=== PATIENT | male | born 1950 | race Caucasian/White ===

== ENCOUNTER 2021-04-23 07:33 | Outpatient (REF) | payer MEDICARE, SELFPAY ==
[2021-04-23 10:38] LABS: MANUAL DIFF FLAG NO
[2021-04-23 10:47] LABS: Basophils Absolute Auto 0.1 X10*3/uL (0.0-0.2); Basophils Percent Auto 0.5 % (0-2); Eosinophils Absolute Auto 0.3 X10*3/uL (0.0-0.4); Hematocrit 48.4 % (42-52); Hemoglobin 15.6 g/dl (14.0-18.0); Imm Gran Abs Auto 0.14 X10*3/uL (0.00-0.03); Imm Gran Pct Auto 1.3 % (0.0-0.4); Lymphocytes Absolute Auto 3.4 X10*3/uL (1.2-4.9); Lymphocytes Percent Auto 30.9 % (20-40); Mean Corpuscular HGB Conc 32.2 g/dl (31.0-36.0); Mean Corpuscular Hemoglobin 29.7 pg (27.0-33.0); Mean Platelet Volume 10.3 fL (9.4-12.4); Monocytes Absolute Auto 1.1 X10*3/uL (0.1-1.2); Monocytes Percent Auto 9.9 % (2-11); Neutrophils Percent Auto 54.4 % (45-73); Platelet Count 244 X10*3/uL (160-400); Red Blood Count 5.26 X10*6/uL (4.60-5.80); Red Cell Distribution Width 12.5 % (11.0-16.0); White Blood Count 11.1 X10*3/uL (4.8-10.8)
[2021-04-23 11:08] LABS: Alanine Aminotransferase 46 U/L (0-40); Albumin Level 4.2 g/dL (3.5-5.0); Alkaline Phosphatase 69 U/L (39-117); Anion Gap 15 (12-20); Aspartate Amino Transferase 26 U/L (5-37); Bilirubin Total 0.7 mg/dL (0.0-1.0); Blood Urea Nitrogen 20 mg/dL (9-16); Calcium 9.4 mg/dL (8.4-10.2); Carbon Dioxide 31 mmol/L (22-29); Chloride 102 mmol/L (96-108); Cholesterol 185 mg/dL; Estimated Glomerular Filt Rate > 60; Glucose Random 93 mg/dL (60-115); HDL Cholesterol 65 mg/dL; LDL Cholesterol Calculated 98 mg/dl; Potassium 5.8 mmol/L (3.3-5.1); Sodium 142 mmol/L (135-145); Total Protein 7.1 g/dL (6.5-8.0); Triglycerides 113 mg/dL
[2021-04-23 11:20] LABS: PSA,Total (Free>4and<10) 3.69 ng/mL (0.00-4.00)
[2021-04-23 11:29] LABS: Folate 7.1 ng/mL (> or = 4.0); Thyroid Stimulating Hormone 3.86 uIU/mL (0.32-4.0); Vitamin B12 311 pg/mL (200-900)
== END 2021-04-23 07:34 | disposition home or self-care (01) ==
LOC: HO.10HDL 07:33
PROVIDERS: Urology; Visit Provider Internal Medicine
DX: Z12.5 Encounter for screening for malignant neoplasm of prostate (principal); R97.20 Elevated prostate specific antigen [PSA]; I10 Essential (primary) hypertension; E78.00 Pure hypercholesterolemia, unspecified
CPT/HCPCS: 36415; 80053; 80061; 82607; 82746; 84153; 84439; 84443; 85025

== ENCOUNTER → 2021-05-15 09:05 | Outpatient (BNVA) | payer MEDICARE, SELFPAY | PROVIDERS: Visit Provider Urology | CPT/HCPCS: Q3014 ==

== ENCOUNTER 2021-05-19 07:58 | Outpatient (REF) | payer MEDICARE, SELFPAY ==
[2021-05-19 11:09] LABS: Alanine Aminotransferase 24 U/L (0-40); Albumin Level 4.1 g/dL (3.5-5.0); Alkaline Phosphatase 74 U/L (39-117); Anion Gap 13 (12-20); Aspartate Amino Transferase 20 U/L (5-37); Bilirubin Direct 0.3 mg/dL (0.0-0.5); Bilirubin Total 0.7 mg/dL (0.0-1.0); Blood Urea Nitrogen 12 mg/dL (9-16); Calcium 9.1 mg/dL (8.4-10.2); Carbon Dioxide 31 mmol/L (22-29); Chloride 104 mmol/L (96-108); Estimated Glomerular Filt Rate > 60; Glucose Random 107 mg/dL (60-115); Iron 78 mcg/dL (45-160); Percent Iron Saturation 25 % (15-50); Potassium 5.3 mmol/L (3.3-5.1); Sodium 143 mmol/L (135-145); Total Iron Binding Capacity 317 mcg/dL (228-428); Total Protein 6.8 g/dL (6.5-8.0); Unsaturated Iron Binding 239 ug/dL
[2021-05-19 11:16] LABS: Ferritin 402 ng/mL (20-250)
[2021-05-19 11:17] LABS: HBc Num1 0.12 S/CO (0.00-0.79); HBsAGNum1 0.22 S/CO (0.00-0.99); Hepatitis B Core Antibody Nonreactive (Nonreactive); Hepatitis B Surface Antigen Negative (Negative); ~HepC Num1 0.07 S/CO (0.00-0.79); ~Hepatitis C Antibody Nonreactive (Nonreactive)
[2021-05-19 11:27] LABS: ~Hepatitis B Surface Antibody NONREACTIVE (Nonreactive)
[2021-05-19 11:54] LABS: Prostate Specific Antigen Scr 4.65 ng/mL (<0.05-4.0)
[2021-05-20 13:50] LABS: Anti Nuclear Antibody Screen NEGATIVE (NEGATIVE)
== END 2021-05-19 07:59 | disposition home or self-care (01) ==
LOC: HO.10HDL 07:58
PROVIDERS: Visit Provider Internal Medicine
DX: Z01.84 Encounter for antibody response examination (principal); Z12.5 Encounter for screening for malignant neoplasm of prostate; Z11.59 Encounter for screening for other viral diseases; Z20.822 Contact with and (suspected) exposure to COVID-19; E87.5 Hyperkalemia; R79.89 Other specified abnormal findings of blood chemistry; I10 Essential (primary) hypertension; R94.5 Abnormal results of liver function studies
CPT/HCPCS: 36415; 80048; 80076; 82728; 83540; 84153; 86038; 86039; 86704; 86706; 86803; 87340; U0005

== ENCOUNTER 2021-05-27 08:19 | Outpatient (REF) | payer MEDICARE, SELFPAY ==
[2021-05-27 10:49] LABS: Anion Gap 13 (12-20); Blood Urea Nitrogen 16 mg/dL (9-16); Calcium 9.3 mg/dL (8.4-10.2); Carbon Dioxide 30 mmol/L (22-29); Chloride 103 mmol/L (96-108); Estimated Glomerular Filt Rate > 60; Glucose Random 106 mg/dL (60-115); Potassium 4.7 mmol/L (3.3-5.1); Sodium 141 mmol/L (135-145)
== END 2021-05-27 08:20 | disposition home or self-care (01) ==
LOC: HO.10HDL 08:19
PROVIDERS: Visit Provider Internal Medicine
DX: E87.5 Hyperkalemia (principal)
CPT/HCPCS: 36415; 80048

== ENCOUNTER 2021-06-18 07:46 | Outpatient (REF) | payer MEDICARE, SELFPAY ==
--- NOTE | ~2021-06-18 | XR_ITS ---
EXAMINATION: BILATERAL KNEE X-RAY CLINICAL INFORMATION: Right knee pain COMPARISON: None TECHNIQUE: Standing AP view of both knees and lateral and sunrise view of the right knee FINDINGS: Right knee: Bone alignment is normal. No fracture or dislocation is seen. There is mild arthritis at the medial femoral tibial and patellofemoral joints with joint space narrowing and osteophyte formation. There is cystic or erosive change seen in the superior patella. There is adjacent soft heterogeneous appearing faint periosteal reaction or soft tissue ossification or calcification. There is an adjacent prepatellar soft tissue mass. Differential would include neoplasm, infection and possibly changes related to inflammatory arthritis. Follow-up MRI of the knee should be considered. There is a small joint effusion. There is faint soft tissue arterial calcification. Standing AP view of the left knee is unremarkable. XR/XR knee RT 2V IMPRESSION: Cystic or erosive changes in the superior patella, adjacent periosteal reaction or soft tissue ossification and associated superior-inferior prepatellar soft tissue mass. Neoplastic, infectious and inflammatory processes should be considered. Follow-up knee MRI recommended. Mild degenerative changes at the medial femoral tibial and patellofemoral joints. Findings will be communicated by the [place] work flow cellular biologist Keesha Pza.
--- NOTE | ~2021-06-18 | XR_ITS ---
EXAMINATION: BILATERAL KNEE X-RAY CLINICAL INFORMATION: Right knee pain COMPARISON: None TECHNIQUE: Standing AP view of both knees and lateral and sunrise view of the right knee FINDINGS: Right knee: Bone alignment is normal. No fracture or dislocation is seen. There is mild arthritis at the medial femoral tibial and patellofemoral joints with joint space narrowing and osteophyte formation. There is cystic or erosive change seen in the superior patella. There is adjacent soft heterogeneous appearing faint periosteal reaction or soft tissue ossification or calcification. There is an adjacent prepatellar soft tissue mass. Differential would include neoplasm, infection and possibly changes related to inflammatory arthritis. Follow-up MRI of the knee should be considered. There is a small joint effusion. There is faint soft tissue arterial calcification. Standing AP view of the left knee is unremarkable. XR/XR knee standing BI IMPRESSION: Cystic or erosive changes in the superior patella, adjacent periosteal reaction or soft tissue ossification and associated superior-inferior prepatellar soft tissue mass. Neoplastic, infectious and inflammatory processes should be considered. Follow-up knee MRI recommended. Mild degenerative changes at the medial femoral tibial and patellofemoral joints. Findings will be communicated by the [place] work flow peoplesoft analyst Keesha Paz.
== END 2021-06-18 07:47 | disposition home or self-care (01) ==
LOC: HO.HOSX 07:46
PROVIDERS: Visit Provider Physician Assistant
DX: M17.11 Unilateral primary osteoarthritis, right knee (principal); M70.41 Prepatellar bursitis, right knee; M25.562 Pain in left knee
CPT/HCPCS: 73560; 73565; 99202

== ENCOUNTER 2021-07-03 08:53 | Outpatient (REF) | payer MEDICARE, SELFPAY ==
--- NOTE | ~2021-07-03 | MR_ITS ---
EXAMINATION: MR KNEE WITHOUT CONTRAST, RIGHT CLINICAL INFORMATION: Right knee swelling with strenuous activity. Pain and swelling. Prepatellar bursitis. COMPARISON: Right knee radiographs dated 06/18/2021 TECHNIQUE: MRI of the knee without contrast was performed using routine sequences on a high-field scanner. FINDINGS: MENISCI: Medial Meniscus: Complex tearing of the medial meniscal body and posterior horn with dominant oblique inner margin components. The meniscal body and posterior horn are attenuated and irregular. There is a medially displaced meniscal flap measuring approximately 1.8 cm in AP dimension. Parameniscal cyst adjacent to the posterior root measuring up to 0.8 cm. Lateral Meniscus: Complex tearing of the anterior horn with a dominant oblique inner margin tear extending through the anterior horn and body. Radial inner margin tearing of the posterior horn and root. Severe attenuation of the posterior root. The meniscal body is laterally extruded. LIGAMENTS: Cruciate: Severe attenuation of the anterior cruciate ligament, consistent with a chronic high-grade partial tear. Intact posterior cruciate ligament. Collateral: Intact EXTENSOR MECHANISM: Within the distal quadriceps tendon and extending into the superior pole of the patella, there is a lobulated, heterogeneous T1 and T2 signal focus measuring approximately 2.7 x 3.5 x 4.7 cm (AP x ML x CC). This expands the distal quadriceps tendon and erodes into the superior pole of the patella. There are low T1/low T2 signal foci within the collection, corresponding to calcifications on the recent radiographs. No adjacent soft tissue edema. Intact patellar tendon. ARTICULAR CARTILAGE/BONE: Patellofemoral Compartment: Full-thickness areas of articular cartilage fissuring at the patellar median ridge and lateral patellar facet with diffuse articular cartilage signal heterogeneity and surface irregularity. Tiny marginal osteophytes. Medial Compartment: Mild weightbearing medial femoral condyle articular cartilage signal heterogeneity. Tiny marginal osteophytes. Lateral Compartment: Weightbearing articular cartilage signal heterogeneity with full-thickness loss at the posterior weightbearing lateral tibial plateau. Minimal subchondral cystic change. Small marginal osteophytes. JOINT FLUID AND BURSAE: Moderate joint effusion. Multiple lobulated foci of fat within the joint space, consistent with lipoma arborescens. Trace joint effusion. Synovial recess versus ganglion cyst dorsal to the proximal tibiofibular joint measuring up to 4.8 cm. MR/MR knee RT wo con IMPRESSION: 1. Lobulated, heterogeneous signal within the distal aspect of the quadriceps tendon extending into the superior pole of the patella with associated tendon expansion and osseous erosion. Central calcifications. Findings correspond to the previous knee radiographs. This could be the sequela of gout. Differential diagnosis includes an alternate chronic inflammatory process. No adjacent marrow or soft tissue edema. 2. Mild tricompartmental osteoarthritis. Moderate joint effusion and trace Slade's cyst. 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 Synovial recess versus ganglion cyst adjacent to the proximal tibiofibular joint measuring up to 4.8 cm. 3. Diffuse complex tearing of the medial meniscal body and posterior horn with a medially displaced meniscal flap. 4. Complex tearing throughout the lateral meniscus anterior horn with dominant oblique inner margin tearing of the meniscal body as well as a near-complete radial tear of the posterior horn/root junction. Lateral extrusion of the meniscal body.
== END 2021-07-03 08:54 | disposition home or self-care (01) ==
LOC: HO.MRI 08:53
PROVIDERS: Visit Provider Physician Assistant
DX: M70.41 Prepatellar bursitis, right knee (principal)
CPT/HCPCS: 73721

== ENCOUNTER 2022-04-24 07:12 | Outpatient (REF) | payer MEDICARE, SELFPAY | END 2022-04-24 07:13 | disposition home or self-care (01) | LOC: HO.LAB 07:12 | PROVIDERS: PCP Internal Medicine; Visit Provider Internal Medicine | DX: Z13.89 Encounter for screening for other disorder (principal) ==

== ENCOUNTER 2022-04-27 07:31 | Outpatient (REF) | payer MEDICARE, SELFPAY ==
[2022-04-27 10:21] LABS: MANUAL DIFF FLAG NO
[2022-04-27 10:34] LABS: Alanine Aminotransferase 17 U/L (0-40); Albumin Level 4.1 g/dL (3.5-5.0); Alkaline Phosphatase 83 U/L (39-117); Anion Gap 14 (12-20); Aspartate Amino Transferase 18 U/L (5-37); Basophils Absolute Auto 0.1 X10*3/uL (0.0-0.2); Basophils Percent Auto 1.1 % (0-2); Bilirubin Total 0.6 mg/dL (0.0-1.0); Blood Urea Nitrogen 20 mg/dL (9-16); Carbon Dioxide 30 mmol/L (22-29); Chloride 101 mmol/L (96-108); Cholesterol 183 mg/dL; Eosinophils Absolute Auto 0.5 X10*3/uL (0.0-0.4); Eosinophils Percent Auto 6.9 % (0-4); Estimated Glomerular Filt Rate > 60; Glucose Random 109 mg/dL (60-115); HDL Cholesterol 48 mg/dL; Hematocrit 46.4 % (42.0-52.0); Hemoglobin 15.5 g/dl (14.0-18.0); Imm Gran Abs Auto 0.03 X10*3/uL (0.00-0.03); Imm Gran Pct Auto 0.4 % (0.0-0.4); LDL Cholesterol Calculated 118 mg/dl; Lymphocytes Absolute Auto 1.6 X10*3/uL (1.2-4.9); Lymphocytes Percent Auto 22.6 % (20-40); Mean Corpuscular HGB Conc 33.4 g/dl (31.0-36.0); Mean Corpuscular Hemoglobin 30.2 pg (27.0-33.0); Mean Corpuscular Volume 90.3 fL (80.0-98.0); Mean Platelet Volume 10.4 fL (9.4-12.4); Monocytes Absolute Auto 0.7 X10*3/uL (0.1-1.2); Monocytes Percent Auto 10.3 % (2-11); Neutrophils Absolute Auto 4.1 x10*3/uL (2.0-8.3); Neutrophils Percent Auto 58.7 % (45-73); Platelet Count 252 X10*3/uL (160-400); Potassium 4.4 mmol/L (3.3-5.1); Red Blood Count 5.14 X10*6/uL (4.60-5.80); Red Cell Distribution Width 12.3 % (11.0-16.0); Sodium 141 mmol/L (135-145); Total Protein 7.1 g/dL (6.5-8.0); Triglycerides 88 mg/dL
[2022-04-27 10:54] LABS: Free T4 (Free Thyroxine) 1.01 ng/dL (0.71-1.85); PSA,Total (Free>4and<10) 4.42 ng/mL (0.00-4.00)
[2022-04-27 11:09] LABS: Folate 10.4 ng/mL (> or = 4.0); Vitamin B12 268 pg/mL (200-900)
[2022-04-27 11:44] LABS: Erythrocyte Sedimentation Rate 8 MM/HR (0-15)
[2022-04-28 11:07] LABS: Free Prostate Spec Ag 1.5 ng/mL; Percent Free Prostate Spec Ag 30 % (calc) (>25)
== END 2022-04-27 07:32 | disposition home or self-care (01) ==
LOC: HO.10HDL 07:31
PROVIDERS: Visit Provider Internal Medicine
DX: Z12.5 Encounter for screening for malignant neoplasm of prostate (principal); R97.20 Elevated prostate specific antigen [PSA]; E78.00 Pure hypercholesterolemia, unspecified; L40.9 Psoriasis, unspecified; I10 Essential (primary) hypertension
CPT/HCPCS: 36415; 80053; 80061; 82607; 82746; 84153; 84154; 84439; 84443; 85025; 85652

== ENCOUNTER → 2022-05-21 13:09 | Outpatient (BNVA) | payer MEDICARE, SELFPAY | PROVIDERS: PCP Internal Medicine; Visit Provider Urology | DX: R97.20 Elevated prostate specific antigen [PSA] (principal) | CPT/HCPCS: Q3014 ==

== ENCOUNTER 2022-11-19 14:39 | Outpatient (REF) | payer MEDICARE, SELFPAY ==
--- NOTE | ~2022-11-19 | XR_ITS ---
EXAMINATION: XR LUMBOSACRAL SPINE CLINICAL INFORMATION: Reason for Exam M54.32 - Sciatica, left side COMPARISON: Lumbar spine radiographs 12/16/2012 TECHNIQUE: 3 views of the lumbar spine FINDINGS: 5 nonrib-bearing lumbar-type vertebral bodies. Vertebral body heights are maintained. Alignment is maintained. Mild multilevel degenerative disc disease with loss of disc space height and facet arthropathy and disc osteophyte complexes. Atherosclerotic calcifications of the abdominal aorta. XR/XR lumbar spine 2-3V IMPRESSION: Mild multilevel degenerative disc disease.
== END 2022-11-19 14:40 | disposition home or self-care (01) ==
LOC: HO.XRAY 14:39
PROVIDERS: PCP Internal Medicine; Visit Provider Nurse Practitioner Family
DX: M54.32 Sciatica, left side (principal)
CPT/HCPCS: 72100

== ENCOUNTER 2023-01-28 13:28 | Outpatient (REF) | payer MEDICARE, SELFPAY | END 2023-01-28 13:29 | disposition home or self-care (01) | LOC: HO.SH 13:28 | PROVIDERS: Visit Provider Nurse Practitioner Family | DX: Z01.118 Encounter for examination of ears and hearing with other abnormal findings (principal); H90.6 Mixed conductive and sensorineural hearing loss, bilateral; H69.93 Unspecified Eustachian tube disorder, bilateral | CPT/HCPCS: 92557; 92567; 92588; 92700 ==

== ENCOUNTER 2023-04-27 08:26 | Outpatient (REF) | payer MEDICARE, SELFPAY ==
[2023-04-27 11:05] LABS: MANUAL DIFF FLAG NO
[2023-04-27 11:08] LABS: Basophils Absolute Auto 0.1 X10*3/uL (0.0-0.2); Basophils Percent Auto 1.1 % (0-2); Eosinophils Absolute Auto 0.3 X10*3/uL (0.0-0.4); Eosinophils Percent Auto 4.5 % (0-4); Hematocrit 46.4 % (42.0-52.0); Hemoglobin 14.8 g/dl (14.0-18.0); Imm Gran Abs Auto 0.03 X10*3/uL (0.00-0.03); Imm Gran Pct Auto 0.4 % (0.0-0.4); Lymphocytes Absolute Auto 1.5 X10*3/uL (1.2-4.9); Lymphocytes Percent Auto 21.1 % (20-40); Mean Corpuscular HGB Conc 31.9 g/dl (31.0-36.0); Mean Corpuscular Volume 93.9 fL (80.0-98.0); Mean Platelet Volume 10.6 fL (9.4-12.4); Monocytes Absolute Auto 0.8 X10*3/uL (0.1-1.2); Monocytes Percent Auto 11.2 % (2-11); Neutrophils Absolute Auto 4.5 x10*3/uL (2.0-8.3); Neutrophils Percent Auto 61.7 % (45-73); Platelet Count 226 X10*3/uL (160-400); Red Blood Count 4.94 X10*6/uL (4.60-5.80); Red Cell Distribution Width 12.5 % (11.0-16.0); White Blood Count 7.3 X10*3/uL (4.8-10.8)
[2023-04-27 11:55] LABS: Alanine Aminotransferase 19 U/L (0-40); Alkaline Phosphatase 69 U/L (39-117); Anion Gap 12 (12-20); Aspartate Amino Transferase 20 U/L (5-37); Bilirubin Total 0.6 mg/dL (0.0-1.0); Blood Urea Nitrogen 24 mg/dL (9-16); Calcium 9.9 mg/dL (8.4-10.2); Carbon Dioxide 31 mmol/L (22-29); Chloride 104 mmol/L (96-108); Cholesterol 176 mg/dL; Estimated Glomerular Filt Rate > 60; Glucose Random 124 mg/dL (60-115); HDL Cholesterol 46 mg/dL; LDL Cholesterol Calculated 111 mg/dl; Potassium 5.1 mmol/L (3.3-5.1); Sodium 142 mmol/L (135-145); Total Protein 7.1 g/dL (6.5-8.0); Triglycerides 95 mg/dL
[2023-04-27 12:12] LABS: Free T4 (Free Thyroxine) 0.87 ng/dL (0.71-1.85); Thyroid Stimulating Hormone 2.84 uIU/mL (0.32-4.0)
[2023-04-27 12:31] LABS: Folate 10.8 ng/mL (> or = 4.0); Prostate Specific Antigen Scr 4.24 ng/mL (<0.05-4.0); Vitamin B12 306 pg/mL (200-900)
[2023-04-27 12:45] LABS: PSA,Total (Free>4and<10) 4.07 ng/mL (0.00-4.00)
[2023-04-30 12:23] LABS: Free Prostate Spec Ag 1.2 ng/mL; Percent Free Prostate Spec Ag 30 % (calc) (>25)
== END 2023-04-27 08:27 | disposition home or self-care (01) ==
LOC: HO.10HDL 08:26
PROVIDERS: Urology; Visit Provider Internal Medicine
DX: R97.20 Elevated prostate specific antigen [PSA] (principal); E78.00 Pure hypercholesterolemia, unspecified; Z12.5 Encounter for screening for malignant neoplasm of prostate
CPT/HCPCS: 36415; 80053; 80061; 82607; 82746; 84153; 84154; 84439; 84443; 85025

== ENCOUNTER 2023-04-30 08:48 | Outpatient (AMB) | payer MEDICARE, SELFPAY ==
[2023-04-30 08:50] VITALS: BP 140/82; PULSE 64; O2SAT 100; BMI 34.6
--- NOTE | 2023-04-30 08:50 | A.OFFVIS_ITS ---
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: No Allergies atorvastatin Allergy (Unknown, Verified 04/30/23 08:52) Unknown Sulfa (Sulfonamide Antibiotics) Allergy (Unknown, Verified 04/30/23 08:52) stomach upset sulfacetamide Allergy (Unknown, Verified 04/30/23 08:52) Unknown Medication List - Last Reconciled 04/30/23 by Norma Reyes MD ascorbate calcium (vitamin C) 1 g PO DAILY atenolol 50 mg PO DAILY [Black Smart extract ] hydrochlorothiazide 25 mg PO DAILY naproxen 250 mg PO BID PRN pravastatin 10 mg PO DAILY Fall Risk Assessment Fall risk assessment: No Falls in past year Date Fall Risk Assessed: 04/30/23 HPI [facility] [id number] 04/20/22 Discuss/Bill ACP HPI Details 72-year-old obese male with hypertension hypercholesterolemia, generalized anxiety and depression last seen in July 2022 coming in for annual well visit today. Review of the notes in December 2022 went to [facility] for the low back pain diagnosis of lumbar degenerative disc disease with radiculopathy has had physical therapy MRI on the lower back done in November 2019 showing lumbar spine degenerative disc disease with central canal and foraminal narrowing L1-L2 left-sided subarticular disc extrusion extending superiorly into the left lateral recess of the L1 this crowds and likely compresses on the L left L1 nerve root. Patient is here for annual well visit. BP at [facility] has been good [facility] Medical History (Updated 04/30/23 @ 09:26 by Norma Reyes MD) Alcohol abuse Anxiety and depression Elevated PSA Gout Hypercholesterolemia Hypertension Left sided sciatica Lumbar degenerative disc disease Obesity (BMI 30-39.9) Osteoarthritis Psoriasis Swelling of left index finger Thoracic outlet syndrome Vitamin D deficiency Surgical History H/O myringotomy Social History (Updated 04/30/23 @ 09:36 by Norma Reyes MD) Alcohol intake: current Patient Tobacco Use Status: Former Tobacco user Years Smoked: stopped 1984 e-Cigarette/Vaping Use: Never Used Current occupational status: retired Current occupation: rt handed Cognitive needs: No Hearing needs: No Vision needs: No Questionnaire Medicare Wellness Checkup [age] What gender do you identify with?: male During the past 4 weeks, how much have you been bothered by emotional problems such as feeling anxious, depressed, irritable, sad or downhearted, and blue?: moderately During the past 4 weeks, has your physical & emotional health limited your social activities with family, friends, neighbors, or groups?: slightly During the past 4 weeks, how much bodily pain have you generally had?: very mild pain During the past 4 weeks, was someone available to help you if you needed & wanted help?: yes, as much as I wanted During the past 4 weeks, what was the hardest physical activity you could do for at least 2 minutes?: heavy Can you get to places out of walking distance without help? (For eg., can you travel alone on buses, taxis or drive your car?): Yes Can you go shopping for groceries or clothes without someone's help?: Yes Can you prepare your own meals?: Yes Can you do your housework without help?: Yes Because of any health problems, do you need the help of another person with your personal care needs such as eating, bathing, dressing or getting around the house?: No Can you handle your own money without help?: Yes During the past 4 weeks, how would you rate your health in general?: good During the past 4 weeks how have things been going for you?: good & bad parts about equal Are you having difficulties driving your car?: no Do you always fasten your seat belt when you are in a car?: yes, usually During past 4 weeks, have you been bothered by the following: never: Falling or dizzy when standing up, Trouble eating well?, Teeth or denture problems? and Problems using the telephone? and sometimes: Sexual problems? and Tiredness or fatigue? Have you fallen 2 or more times in the past year?: No Are you afraid of falling?: No Are you a smoker?: no During the past 4 weeks, how many drinks of wine, beer, or other alcoholic beverages did you have?: 10 or more per week Do you exercise for about 20 minutes 3 or more times a week?: yes, most of the time Have you been given information to help with the following?: yes: Hazards in your house that might hurt you? and yes: Keeping track of your medications? How often do you have trouble taking medicines the way you have been told to t sabrina them?: I always take medicine as prescribed How confident are you that you can control & manage most of your health problems?: very confident What is your race?: White PHQ-9 Over the last 2 weeks, how often have you been bothered by any of the following problems? 1. Little interest or pleasure in doing things: several days 2. Feeling down, depressed, or hopeless: several days 3. Trouble falling or staying asleep, or sleeping too much: several days 4. Feeling tired or having little energy: several days 5. Poor appetite or overeating: not at all 6. Feeling bad about yourself - or that you are a failure or have let yourself or your family down: not at all 7. Trouble concentrating on things, such as reading the newspaper or watching television: not at all 8. Moving or speaking so slowly that other people could have noticed. Or the opposite - being so fidgety or restless that you have been moving around a lot more than usual: not at all 9. Thoughts that you would be better off or of hurting yourself in some way: not at all Total score: 4 Source: Developed by Drs. Vj Casanova, Wagner Chavez and colleagues, with an educational tere from [employer]. ANI-7 AMB Questionnaire ANI-7 Date ANI - 7 assessed: 11/19/22 Source: Developed by Elvira Cleaning Kurt Kroenke and colleagues, with an educational tere from [employer]. Thrive Questionnaire Date Thrive assessed: 11/19/22 Review of Systems Const Denies poor appetite and Denies weakness Eyes Denies no additional complaints ENT Reports Normal hearing present, Denies dizziness, Denies nasal congestion, Denies tinnitus and Denies sore throat Card Denies chest pain, Denies syncope, Denies rapid heart rate and Denies dyspnea Resp Denies cough and Denies dyspnea GI Denies change in stool character, Reports constipation, Denies diarrhea, Denies nausea and Denies vomiting Denies dysuria and Denies urinary frequency Neuro Reports Normal hearing present, Denies confusion, Denies dizziness, Denies syncope and Denies weakness Psych Denies confusion Physical Exam Vital Signs: Last Vital Signs Pulse 64 04/30/23 08:50 BP 140/82 H 04/30/23 08:50 Pulse Ox 100 04/30/23 08:50 Oxygen Delivery Method Room Air 04/30/23 08:50 BMI result Body Mass Index 34.6 Const General: No confusion Orientation/consciousness: No confusion HEENT Head: Yes normocephalic Ears: external ears normal and TM's normal bilaterally Face and sinus: Yes normal facial exam Mouth: moist mucous membranes Throat: Yes tonsils normal Eyes Conjunctivae: conjunctivae normal Pupils: Equal, round and reactive pupils present and Pupil accommodation reflex normal Direct Ophthalmoscopy: normal light reflex Neck Neck: No lymphadenopathy Thyroid: Thyroid normal Chest Chest palpation & inspection: normal inspection of the chest Resp Effort & Inspection: normal respiratory effort and no audible wheezes Auscultation: clear to auscultation bilaterally, no crackles, no wheezes and lung sounds not diminished Cardio Rate: regular rate Rhythm: regular rhythm Peripheral pulses: radial pulses present and dorsalis pedis present GI Other: decline- will see Dr. Esteban Palpation (GI): no masses Auscultation: normal bowel sounds and normoactive bowel sounds Rectal Exam - Male: Yes deferred Male General Exam: Yes normal external exam Skin General skin exam: no rashes or lesions noted Rashes: no rashes Neuro General: No confusion Cranial nerves: Yes Equal, round and reactive pupils present and Yes Normal hearing present Cognition (Neuro): normal cognition Gait exam (Neuro): Normal gait present Motor exam (neuro): 5/5 motor strength present throughout Deep tendon reflexes (DTR's): Right brachioradialis reflex intensity grade: 2+, Left brachioradialis reflex intensity grade: 2+, Right patellar reflex intensity grade: 2+ and Left patellar reflex intensity grade: 2+ Extrem General: No edema Results AMB Hemoglobin A1c AMB Hemoglobin A1c 5.8 % Last Edit by GONZALEZ Deleon on 04/30/23 09:46 Assessment & Plan Assessment & Plan (1) Medicare annual wellness visit, subsequent: Code(s): Z00.00 - Encounter for general adult medical examination without abnormal findings (2) Lumbar degenerative disc disease: Code(s): M51.36 - Other intervertebral disc degeneration, lumbar region Plan: Patient has had an MRI done in November 2022 showing some nerve root compression lumbar. Did see [facility] but conservative management (3) Hypertension: Code(s): I10 - Essential (primary) hypertension Plan: Continue with blood pressure medication. Decrease salt intake and exercise patient is on atenolol and hydrochlorothiazide (4) Hypercholesterolemia: Code(s): E78.00 - Pure hypercholesterolemia, unspecified Plan: Avoid fried foods, chicken skin, eggs, butter margarine, pastries and meat. Be it pork or beef they have a lot of cholesterol LDL goal of less than 130 and triglyceride of less than 150 April 2023 last blood work on pravastatin 10 mg once a day (5) Obesity (BMI 30-39.9): Code(s): E66.9 - Obesity, unspecified Plan: Diet and exercise (6) Psoriasis: Code(s): L40.9 - Psoriasis, unspecified (7) Elevated PSA: Code(s): R97.20 - Elevated prostate specific antigen [PSA] Plan: Continuing to monitor (8) Generalized anxiety disorder: Code(s): F41.1 - Generalized anxiety disorder Plan: Stable (9) Elevated blood sugar: Code(s): R73.9 - Hyperglycemia, unspecified Plan: Will check for hemoglobin A1c. Decrease the amount of carbohydrate intake, pasta, bread, rice and potatoes are all sugar and that is aside from all the sweet stuff, remember that fruits are good but they are Sweet also. Orders: Orders AMB Hemoglobin A1c Today Z13.9 - Encounter for screening, unspecified Quality Reporting (2019) Fall Risk Screening ([facility] 139) Last assessed Fall Risk: 04/30/23 Fall risk assessment: No Falls in past year Depression/Bipolar (159/160/161/177) PHQ-9: Total score: 4 Coding Level of Care Code Medicare Subsequent (G0439) Diagnoses Medicare annual wellness visit, subsequent Z00.00 Lumbar degenerative disc disease M51.36 Hypertension I10 Hypercholesterolemia E78.00 Obesity (BMI 30-39.9) E66.9 Psoriasis L40.9 Elevated PSA R97.20 Generalized anxiety disorder F41.1 Elevated blood sugar R73.9
== END 2023-04-30 10:09 | disposition home or self-care (01) ==
PROVIDERS: Visit Provider Internal Medicine
DX: Z00.00 Encounter for general adult medical examination without abnormal findings (principal); E66.9 Obesity, unspecified; Z68.34 Body mass index [BMI] 34.0-34.9, adult; R73.9 Hyperglycemia, unspecified
CPT/HCPCS: 83036; G0439

== ENCOUNTER 2023-05-25 08:50 | Outpatient (AMB) | payer MEDICARE, SELFPAY ==
--- NOTE | 2023-05-25 08:55 | A.OFFVIS_ITS ---
Intake Intake Visit Reasons: 1Y PSA(set) Intake Note: Patient is present for Follow Up PSA Urology Med: None Antibiotic Allergy: Sulfa Antibiotic Blood Thinner: None Pharmacy: [facility] Allergies atorvastatin Allergy (Unknown, Verified 05/25/23 08:59) Unknown Sulfa (Sulfonamide Antibiotics) Allergy (Unknown, Verified 05/25/23 08:59) stomach upset sulfacetamide Allergy (Unknown, Verified 05/25/23 08:59) Unknown HPI HPI Comments History of Present Illness Details Franck BROWN is a very pleasant male. He is a patient of Dr Reyes. He is seen for the following urologic conditions. - elevated PSA PSA stable since last year - PSA 4.1, not on medication, high free percentage Continue yearly evaluation Maxeran not have caffeine prior to test Elevated PSA/Abnormal KRISTY:? He presents for ?further evaluation of elevated PSA ?- remains stable at followup - noctruria x2, effective emptying ? Current management is?no medication ? Laboratory investigations include?a total PSA evaluation ?12/05 5.2, 10/08 3.5, 11/09 5.1 20%, 04/08 PSA 4.0 24%, 05/10 3.8, 05/11 4.4 30%. 05/12 4.1 30% ? Indiviudalized Prostate Cancer Risk Calculator?5-10% high risk, Would like to continue with observation and understands and accepts the risks of a possible delay in diagnosis.? A TRUS biopsy? has ?been performed and is negative 2011 ? Symptoms include?04/06 , incomplete emptying, weak stream, and are stable.? Overall symptoms are?mild.? Associated conditions? erectile dysfunction ?Yes ? Therapeutic plan will be?continued surveillance [facility] Medical History Alcohol abuse Anxiety and depression Elevated PSA Gout Hypercholesterolemia Hypertension Left sided sciatica Lumbar degenerative disc disease Obesity (BMI 30-39.9) Osteoarthritis Psoriasis Swelling of left index finger Thoracic outlet syndrome Vitamin D deficiency Surgical History H/O myringotomy Social History Alcohol intake: current Patient Tobacco Use Status: Former Tobacco user Years Smoked: stopped 1984 e-Cigarette/Vaping Use: Never Used Current occupational status: retired Current occupation: rt handed Cognitive needs: No Hearing needs: No Vision needs: No Review of Systems Const Denies chills and Denies fever(s) Card Reports no additional complaints and Denies syncope Resp Denies cough GI Denies abdominal pain and Denies heartburn Reports as per HPI and Denies change in libido Neuro Denies syncope Psych Denies change in libido Endo Denies change in libido Physical Exam Const General: cooperative, healthy appearing, comfortable and no acute distress Orientation/consciousness: patient oriented x3 HEENT Face and sinus: Yes normal facial exam Mouth: moist mucous membranes Neck Neck: Yes normal visual inspection, Yes full ROM and Yes trachea midline Chest Chest palpation & inspection: normal inspection of the chest Resp Effort & Inspection: normal respiratory effort, able to speak in complete sentences and no respiratory distress GI Inspection: Yes normal to inspection Back/Spine/Pelvis Cervical Spine: normal cervical lordosis Thoracic/Lumbar Spine: thoracic and lumbar spine normal to inspection Skin General skin exam: no rashes or lesions noted Neuro General: patient oriented x3, gait normal, tone normal and moves all extremities Extrem General: Yes normal to inspection and Yes capillary refill normal Assessment & Plan Assessment & Plan (1) Elevated PSA: Code(s): R97.20 - Elevated prostate specific antigen [PSA] Plan Twelve month follow-up Patient Instructions: Imaging studies, laboratory and physical exam results were discussed and reviewed in detail. No major barriers to patient understanding were identified. An opportunity to ask questions regarding the treatment plan was provided. All questions were answered. The patient expressed understanding and agreement with the above treatment plan. The patient is aware they should contact our office by phone for worsening of their current condition or the appearance of new urologic symptoms. Compliance is encouraged with any medications and followup testing that is ordered. It is a privilege to participate in the urologic care of your patient. If you have any questions or concerns regarding treatment for the above conditions, or other urologic issues, please do not hesitate to contact me. The office telephone contact is [phone]. This note is constructed using voice recognition software. While every effort has been made to ensure accuracy repair supervisor errors may have been included. Yours sincerely, Dr Bakari Esteban MD, [facility] - Urology Providers of Expert, Compassionate Care for the Genitourinary System Coding Level of Care Code Est Pt Level 4 (48552) Diagnoses Elevated PSA R97.20
== END 2023-05-25 09:48 | disposition home or self-care (01) ==
PROVIDERS: PCP Internal Medicine; Visit Provider Urology
DX: R97.20 Elevated prostate specific antigen [PSA] (principal)
CPT/HCPCS: 99213

== ENCOUNTER → 2023-05-25 08:50 | Outpatient (BNVA) | payer MEDICARE, SELFPAY | PROVIDERS: Visit Provider Urology | DX: R97.20 Elevated prostate specific antigen [PSA] (principal) | CPT/HCPCS: 99212 ==

== ENCOUNTER 2023-07-19 10:33 | Outpatient (REF) | payer MEDICARE, SELFPAY ==
--- NOTE | ~2023-07-19 | XR_ITS ---
EXAMINATION: XR WRIST, RIGHT CLINICAL INFORMATION: Swelling COMPARISON: Right hand radiograph from 01/11/2019 TECHNIQUE: PA and lateral views of the right wrist. FINDINGS: No acute visible fracture or dislocation. Moderate to severe multi joint arthritic changes greatest at the first carpal metacarpal joint and distal radial ulnar joint. Joint space alignment are otherwise maintained. Soft tissue prominence about the wrist and distal forearm. XR/XR wrist RT 2V IMPRESSION: 1. No acute visible fracture or dislocation. 2. Moderate to severe multi joint arthritic changes greatest at the first carpometacarpal joint and distal radial ulnar joint. 3. Soft tissue prominence about the wrist and distal forearm.
[2023-07-19 13:41] LABS: MANUAL DIFF FLAG NO
[2023-07-19 13:43] LABS: Basophils Absolute Auto 0.1 X10*3/uL (0.0-0.2); Basophils Percent Auto 0.7 % (0-2); Eosinophils Absolute Auto 0.2 X10*3/uL (0.0-0.4); Eosinophils Percent Auto 1.9 % (0-4); Hemoglobin 15.4 g/dl (14.0-18.0); Imm Gran Abs Auto 0.04 X10*3/uL (0.00-0.03); Imm Gran Pct Auto 0.4 % (0.0-0.4); Lymphocytes Absolute Auto 1.4 X10*3/uL (1.2-4.9); Lymphocytes Percent Auto 13.1 % (20-40); Mean Corpuscular HGB Conc 32.8 g/dl (31.0-36.0); Mean Corpuscular Hemoglobin 30.1 pg (27.0-33.0); Mean Platelet Volume 10.5 fL (9.4-12.4); Monocytes Absolute Auto 1.1 X10*3/uL (0.1-1.2); Monocytes Percent Auto 10.9 % (2-11); Neutrophils Absolute Auto 7.6 x10*3/uL (2.0-8.3); Platelet Count 246 X10*3/uL (160-400); Red Blood Count 5.11 X10*6/uL (4.60-5.80); Red Cell Distribution Width 12.5 % (11.0-16.0); White Blood Count 10.4 X10*3/uL (4.8-10.8)
[2023-07-19 14:23] LABS: Erythrocyte Sedimentation Rate 21 MM/HR (0-15)
== END 2023-07-19 10:34 | disposition home or self-care (01) ==
LOC: HO.10HDL 10:33
PROVIDERS: Visit Provider Nurse Practitioner Family
DX: M25.541 Pain in joints of right hand (principal)
CPT/HCPCS: 36415; 73100; 85025; 85652

== ENCOUNTER 2023-08-17 11:48 | Outpatient (REF) | payer MEDICARE, SELFPAY ==
[2023-08-17 13:26] LABS: C Reactive Protein 0.87 mg/dL (< or = 0.50); Uric Acid 8.4 mg/dL (3.4-7.0)
[2023-08-17 13:27] LABS: Rheumatoid Factor < 13.0 IU/mL (<15.0)
[2023-08-17 13:52] LABS: Erythrocyte Sedimentation Rate 12 MM/HR (0-15)
[2023-08-18 08:28] LABS: HBc Num1 0.12 S/CO (0.00-0.79); HBsAGNum1 0.27 S/CO (0.00-0.99); Hepatitis B Core Antibody Nonreactive (Nonreactive); Hepatitis B Surface Antigen Negative (Negative); ~HepC Num1 0.09 S/CO (0.00-0.79); ~Hepatitis C Antibody Nonreactive (Nonreactive)
[2023-08-18 10:29] LABS: Complement C3 134 mg/dL (82-185)
[2023-08-18 12:38] LABS: Cyclic Citrullinated Peptide <16 UNITS
[2023-08-19 19:23] LABS: TS Negative Control Passed; TS Panel A 0; TS Panel B 0; TS Positive Control Passed; TSpotTB Negative (Negative)
[2023-08-20 11:33] LABS: Anti Nuclear Antibody Screen NEGATIVE (NEGATIVE)
== END 2023-08-17 11:49 | disposition home or self-care (01) ==
LOC: HO.10HDL 11:48
PROVIDERS: Visit Provider Internal Medicine Rheumatology
DX: Z11.1 Encounter for screening for respiratory tuberculosis (principal); M25.50 Pain in unspecified joint; M79.641 Pain in right hand; M79.642 Pain in left hand; M19.041 Primary osteoarthritis, right hand; M19.042 Primary osteoarthritis, left hand; M1A.9XX1 Chronic gout, unspecified, with tophus (tophi); L40.9 Psoriasis, unspecified; Z11.59 Encounter for screening for other viral diseases; Z72.89 Other problems related to lifestyle
CPT/HCPCS: 36415; 84550; 85652; 86038; 86140; 86160; 86200; 86431; 86481; 86704; 86803; 87340

== ENCOUNTER 2023-09-16 13:29 | Emergency (ER) | payer MEDICARE, SELFPAY ==
[2023-09-16 13:50] VITALS: BP 132/90; PULSE 54; O2SAT 99
[2023-09-16 13:53] VITALS: BP 146/64; PULSE 59; RESP 18; TEMP 37.1; O2SAT 96; BMI 34.7
--- NOTE | 2023-09-16 14:11 | ED_ITS ---
HPI - Back Pain/Injury General Chief Complaint: Extremity Injury, Lower Stated Complaint: LOWER BACK/EXTREMITY PAIN,DIFFICULTY AMBULATING Time Seen by Provider: 09/16/23 13:40 Source: patient Mode of arrival: ambulatory Limitations: no limitations History of Present Illness HPI Narrative: 72 yo male with hx of sciatica not on thinners was playing tennis yesterday and c/o pain on R side from buttock but no loss of control of bowel or bladder no numbness no abdominal pain tried naproxen but no relief. no cramps anywhere else. States he panicked because he lives alone. He has no pain now after getting jostled on ride over. MD elicited complaint: back pain Pertinent past history: prior back pain Onset (ago): day(s) (1) Timing: now resolved Severity: moderate Similar Symptoms Previously: Yes Quality: sharp Location: lumbar spine Radiation: right upper leg Exacerbating factors: movement Relieving factors: immobilization Context: unknown Associated symptoms: denies other symptoms Related Data Home Medications Medication Instructions Recorded Confirmed ascorbate calcium (vitamin C) 500 1 g PO DAILY 04/29/22 04/30/23 mg tablet naproxen 250 mg tablet 250 mg PO BID PRN 04/29/22 04/30/23 Black Smart extract 04/30/23 04/30/23 Previous Rx's Medication Instructions Recorded pravastatin 10 mg tablet 10 mg PO DAILY #90 tabs 10/12/22 atenolol 50 mg tablet 50 mg PO DAILY #90 tabs 01/05/23 hydrochlorothiazide 25 mg tablet 25 mg PO DAILY #90 tabs 01/05/23 Allergies Allergy/AdvReac Type Severity Reaction Status Date / Time atorvastatin Allergy Unknown Unknown Verified 05/25/23 08:59 Sulfa (Sulfonamide Allergy Unknown stomach Verified 05/25/23 08:59 Antibiotics) upset sulfacetamide Allergy Unknown Unknown Verified 05/25/23 08:59 Review of Systems Review of Systems: Constitutional : No Weight loss, No Fever, No Chills, ENT/Mouth : No Hearing loss, No Ear Pain, No Nasal Congestion, No Sinus Pain, No Hoarseness, No sore throat, No Rhinorrhea, No Swallowing Difficulty Cardiovascular : No Chest Pain, No SOB Respiratory : No Cough, No Dyspnea Gastrointestinal : No Nausea, No Vomiting, No Diarrhea, No abdominal Pain, No Hematochezia, No Melena Genitourinary : No Dysuria, No Urinary Frequency, No Hematuria, No Urinary Incontinence, Musculoskeletal : positive back pain Skin : No Skin Lesions, No rash Neuro : No Weakness, No Numbness, No Paresthesias, no loss of bowel or bladder incontinence, no saddle anesthesia All other systems reviewed and are negative [facility] Past Medical History Attestation statement: The following information was validated with the patient. Medical History Lumbar degenerative disc disease Left sided sciatica Swelling of left index finger Elevated PSA Thoracic outlet syndrome Vitamin D deficiency Osteoarthritis Anxiety and depression Gout Obesity (BMI 30-39.9) Psoriasis Alcohol abuse Hypercholesterolemia Hypertension Surgical History H/O myringotomy Social History Social History Alcohol intake: current Alcohol type: beer Patient Tobacco Use Status: Former Tobacco user Years Smoked: stopped 1984 e-Cigarette/Vaping Use: Never Used Current occupational status: retired Current occupation: rt handed Cognitive needs: No Hearing needs: No Vision needs: No Physical Exam Vital Signs: Vital Signs: Last Vital Signs Temp 98.8 F 09/16/23 13:53 Pulse 59 09/16/23 13:53 Resp 18 09/16/23 13:53 BP 146/64 H 09/16/23 13:53 Pulse Ox 96 09/16/23 13:53 O2 Del Method Room Air 09/16/23 13:53 BMI result Body Mass Index 34.7 Appearance: Alert. Oriented X3. No acute distress. Eyes: Pupils equal, round and reactive to light. ENT: Pharynx normal. Neck: Normal inspection. Neck supple. CVS: Normal heart rate and rhythm. Pulses normal. Respiratory: No respiratory distress. Breath sounds normal. Abdomen: Soft and nontender. Back: mild R buttock ttp Skin: Skin warm and dry. Normal skin color. Normal skin turgor. Extremities: No lower extremity edema. distal pulses intact, no swelling, 2+ DP pulses, no calf ttp or myalgias Neuro: Oriented X 3. No motor deficit. No sensory deficit. L5 5/5 normal gait no pain Medical Decision Making Medical Decision Making MDM Narrative: 72yo male with hx of sciatica here with c/o R sided buttock pain down into R leg no b/b incontinence, no saddle anesthesia, not on thinners no other cramps and now reports the jostling of the ambulance ride has somehow fixed his pain. He is ambulating fine has no CE symptoms and is pain free at this time stable for DC, no red flags. Differential Diagnosis Differential Diagnoses: The differential diagnosis associated with the presentation includes sciatica, spasm Independent Historian Clinical information obtained from an independent historian. History obtained from or confirmed by: EMS Tests considered The following testing was considered but not selected: labs but not on diuretics and no cramps anywhere else Discharge Plan Discharge Clinical Impression: Sciatica Qualifiers: Laterality: right Qualified Code(s): M54.31 - Sciatica, right side Patient Disposition: Home, Self-Care Instructions: Sciatica (ED) Additional Instructions: can take your naproxen. return for fevers, abdominal pain, loss of control of bowel or bladder, numbness, cramps anywhere else or any other concerns. do your stretches and follow up with your doctor Prescriptions: No Action pravastatin 10 mg tablet 10 mg PO DAILY Qty: 90 3RF atenolol 50 mg tablet 50 mg PO DAILY Qty: 90 2RF hydrochlorothiazide 25 mg tablet 25 mg PO DAILY Qty: 90 2RF naproxen 250 mg tablet 250 mg PO BID PRN ascorbate calcium (vitamin C) 500 mg tablet 1 g PO DAILY (DME) Black Smart extract 0 .ROUTE .MEDSUPPLY
== END 2023-09-16 14:28 | disposition home or self-care (01) ==
PROVIDERS: Emergency Provider Emergency Medicine; PCP Internal Medicine
DX: M54.31 Sciatica, right side (principal)
CPT/HCPCS: 99283

== ENCOUNTER 2023-10-06 11:29 | Outpatient (AMB) | payer MEDICARE, SELFPAY ==
--- NOTE | 2023-10-06 11:29 | A.OFFPC_ITS ---
Intake Visit Reasons: GOUT, Sciatica Allergies atorvastatin Allergy (Unknown, Verified 10/06/23 11:30) Unknown Sulfa (Sulfonamide Antibiotics) Allergy (Unknown, Verified 10/06/23 11:30) stomach upset sulfacetamide Allergy (Unknown, Verified 10/06/23 11:30) Unknown Tobacco use date assessed: 10/06/23 Fall risk assessment: No Falls in past year Last assessed Fall Risk: 10/06/23 Dental Screening Dental Screen Date: 10/06/23 Did you have a dental visit in the last 12 months?: Yes Did you have a dental problem in the last 6 months where you did not have access to dental care?: No Was dental information given to patient?: Patient has dentist HPI GOUT, Sciatica 2 HPI Details 72-year-old obese male with a history of lumbar degenerative disc disease hypertension hypercholesterolemia psoriasis generalized anxiety disorder last seen in April 2023. Review of the notes follows up with [facility] for the back pain MRI done November 2022 showing disc extrusions lumbar impingement of the left L1 nerve root L5-S1 disc protrusion right crowding of the exiting right L5 nerve roots advised physical therapy gabapentin prescribed and if symptoms increase advised L5 right transforaminal epidural steroid injection. Review of the note also in July 2023 this is on the right hand pain and was advised to see Rheumatology. Patient has also seen the urology for polyp on the PSA. complains of sciatica- R . 2 weeks ago -did play tennis- R leg sore, 911 called - ER - got better in ER. also complains of night R gluteal to posterior thigh to the foot and numbness. [facility] Medical History (Updated 10/06/23 @ 12:30 by Norma Reyes MD) Lumbar degenerative disc disease Left sided sciatica Swelling of left index finger Elevated PSA Thoracic outlet syndrome Vitamin D deficiency Osteoarthritis Anxiety and depression Gout Obesity (BMI 30-39.9) Psoriasis Alcohol abuse Hypercholesterolemia Hypertension Surgical History H/O myringotomy Social History Housing: House Alcohol intake: current Alcohol type: beer Patient Tobacco Use Status: Former Tobacco user Tobacco use type: Cigarette Years Smoked: stopped 1984 e-Cigarette/Vaping Use: Never Used Second Hand Smoke Exposure: No Current occupational status: retired Current occupation: rt handed Cognitive needs: No Hearing needs: No Vision needs: No Questionnaire PHQ-9 Over the last 2 weeks, how often have you been bothered by any of the following problems? 1. Little interest or pleasure in doing things: several days 2. Feeling down, depressed, or hopeless: several days 3. Trouble falling or staying asleep, or sleeping too much: several days 4. Feeling tired or having little energy: several days 5. Poor appetite or overeating: not at all 6. Feeling bad about yourself - or that you are a failure or have let yourself or your family down: not at all 7. Trouble concentrating on things, such as reading the newspaper or watching television: not at all 8. Moving or speaking so slowly that other people could have noticed. Or the opposite - being so fidgety or restless that you have been moving around a lot more than usual: not at all 9. Thoughts that you would be better off or of hurting yourself in some way: not at all Total score: 4 Source: Developed by Drs. Vj Casanova, Elvira Cobian, Wagner Anna and colleagues, with an educational etre from [employer]. Thrive Questionnaire Date Thrive assessed: 10/06/23 I am a: Patient What is your living situation today?: I have a steady place to live Within the past 12 months, did the food you bought not last and you didn't have the money to get more?: Never true Within the past 12 months, did you worry whether your food would run out before you got money to buy more?: Never true Do you have trouble paying for medicines?: No Do you have trouble getting transportation to medical appointments?: No Do you have trouble paying your heating and electricity bill?: No Do you have trouble taking care of your child, family member or friend?: No Do you have trouble with day-to-day activities such as bathing, preparing meals, shopping, managing finances, etc.?: No Are you currently unemployed and looking for a job?: No Are you interested in more education?: No AUDIT C Alcohol Use Questionnaire (AUDIT-C) 1. How often do you have a drink containing alcohol?: Never 3. How often do you have six or more drinks on one occasion?: Never Total Score: 0 ANI-7 AMB Questionnaire ANI-7 Date ANI - 7 assessed: 10/06/23 Feeling nervous, anxious, or on edge: 0 = Not at all Not being able to stop or control worryin = Not at all Worrying too much about different things: 0 = Not at all Trouble relaxin = Not at all Being so restless that it is hard to sit still: 0 = Not at all Becoming easily annoyed or irritable: 0 = Not at all Feeling afraid as if something awful might happen: 0 = Not at all Total ANI-7 score (0-4 normal; 5-9 mild; 10-14 moderate; 15-21 severe): 0 Source: Developed by Drs. Vj Casanova, Elvira Cobian, Wagner Anna and colleagues, with an educational tere from [employer]. Physical exam (Primary Care) Tobacco/Smoking Status: Tobacco use Status Tobacco use date assessed 10/06/23 10/06/23 11:32 Patient Tobacco Use Status Former Tobacco user 10/06/23 11:32 Tobacco use type Cigarette 10/06/23 11:32 e-Cigarette/Vaping Use Never Used 10/06/23 11:32 PHQ-9: PHQ-9 Score PHQ-9: Total score 4 10/06/23 11:32 Thrive Assessment: Date of Thrive Assessment Date Thrive assessed 10/06/23 10/06/23 11:32 Telehealth Telehealth Location of provider rendering services: practice address Location of patient: address on file Patient Identification confirmed using: Name, : Yes Telehealth method: voice only Patient verbally consented to treatment: Yes Patient verbally consented to billing insurance company: Yes Patient informed of any privacy concerns related to visit: Yes Minutes spent on Phone/Video with Pt.: 25 Assessment and Plan Assessment & Plan (1) Lumbar degenerative disc disease: Code(s): M51.36 - Other intervertebral disc degeneration, lumbar region Plan: Patient has seen [facility] and planned physical therapy and if persist thing pain epidural injection (2) Primary osteoarthritis, right wrist: Code(s): M19.031 - Primary osteoarthritis, right wrist Plan: Patient was referred to rheumatology. Discussed about pain management. was given treatment for gout. (3) Obesity (BMI 30-39.9): Code(s): E66.9 - Obesity, unspecified Plan: Diet and exercise (4) Sciatica, right side: Code(s): M54.31 - Sciatica, right side Plan: asking for something for sleep- decline muscle relaxant. (5) Gout: Code(s): M10.9 - Gout, unspecified Plan: seen rheumatology in [place] treated with febuxostat Coding Level of Care Code Tele Est Pt Level 4 (12703) Diagnoses Lumbar degenerative disc disease M51.36 Primary osteoarthritis, right wrist M19.031 Obesity (BMI 30-39.9) E66.9 Sciatica, right side M54.31 Gout M10.9
== END 2023-10-06 13:18 | disposition home or self-care (01) ==
LOC: HO.HMGH 11:29
PROVIDERS: PCP Internal Medicine; Visit Provider Internal Medicine
DX: M51.36 Other intervertebral disc degeneration, lumbar region (principal); M19.031 Primary osteoarthritis, right wrist; M54.31 Sciatica, right side; M10.9 Gout, unspecified
CPT/HCPCS: 99443

== ENCOUNTER 2024-04-25 07:57 | Outpatient (REF) | payer MEDICARE, SELFPAY ==
[2024-04-25 10:26] LABS: MANUAL DIFF FLAG NO
[2024-04-25 10:31] LABS: Basophils Absolute Auto 0.1 X10*3/uL (0.0-0.2); Basophils Percent Auto 0.9 % (0-2); Eosinophils Absolute Auto 0.3 X10*3/uL (0.0-0.4); Eosinophils Percent Auto 4.6 % (0-4); Hematocrit 47.2 % (42.0-52.0); Hemoglobin 15.8 g/dl (14.0-18.0); Imm Gran Abs Auto 0.03 X10*3/uL (0.00-0.03); Imm Gran Pct Auto 0.4 % (0.0-0.4); Lymphocytes Absolute Auto 1.7 X10*3/uL (1.2-4.9); Lymphocytes Percent Auto 22.8 % (20-40); Mean Corpuscular HGB Conc 33.5 g/dl (31.0-36.0); Mean Corpuscular Hemoglobin 29.5 pg (27.0-33.0); Mean Corpuscular Volume 88.1 fL (80.0-98.0); Mean Platelet Volume 10.1 fL (9.4-12.4); Monocytes Absolute Auto 0.7 X10*3/uL (0.1-1.2); Monocytes Percent Auto 9.5 % (2-11); Neutrophils Absolute Auto 4.6 x10*3/uL (2.0-8.3); Neutrophils Percent Auto 61.8 % (45-73); Platelet Count 241 X10*3/uL (160-400); Red Blood Count 5.36 X10*6/uL (4.60-5.80); Red Cell Distribution Width 12.9 % (11.0-16.0); White Blood Count 7.5 X10*3/uL (4.8-10.8)
[2024-04-25 10:56] LABS: Alanine Aminotransferase 17 U/L (0-40); Albumin Level 4.3 g/dL (3.5-5.0); Alkaline Phosphatase 83 U/L (39-117); Anion Gap 16 (12-20); Aspartate Amino Transferase 16 U/L (5-37); Bilirubin Total 0.5 mg/dL (0.0-1.0); Blood Urea Nitrogen 17 mg/dL (9-16); Calcium 9.9 mg/dL (8.4-10.2); Carbon Dioxide 32 mmol/L (22-29); Chloride 99 mmol/L (96-108); Cholesterol 208 mg/dL (<200); Estimated Glomerular Filt Rate > 60; Glucose Random 110 mg/dL (60-115); HDL Cholesterol 46 mg/dL (>40); LDL Cholesterol Calculated 141 mg/dL (<100); Sodium 142 mmol/L (135-145); Total Protein 7.7 g/dL (6.5-8.0); Triglycerides 108 mg/dL (<150)
[2024-04-25 11:15] LABS: Free T4 (Free Thyroxine) 1.07 ng/dL (0.71-1.85); Thyroid Stimulating Hormone 2.59 uIU/mL (0.32-4.0)
[2024-04-25 11:21] LABS: PSA,Total (Free>4and<10) 5.14 ng/mL (0.00-4.00)
[2024-04-25 11:49] LABS: Folate 10.4 ng/mL (> or = 4.0); Vitamin B12 335 pg/mL (200-900)
[2024-04-27 11:04] LABS: Free Prostate Spec Ag 1.6 ng/mL; Percent Free Prostate Spec Ag 31 % (calc) (>25); Prostate Specific Ag Total 5.1 ng/mL (< OR = 4.0)
[2024-04-29 14:59] LABS: Vitamin D 25-OH, D2 <4 ng/mL; Vitamin D 25-OH, D3 12 ng/mL; Vitamin D 25-OH, Total 12 ng/mL (30-100)
== END 2024-04-25 07:58 | disposition home or self-care (01) ==
LOC: HO.10HDL 07:57
PROVIDERS: Visit Provider Urology
DX: Z00.00 Encounter for general adult medical examination without abnormal findings (principal); R97.20 Elevated prostate specific antigen [PSA]; Z12.5 Encounter for screening for malignant neoplasm of prostate
CPT/HCPCS: 36415; 80053; 80061; 82306; 82607; 82746; 84153; 84154; 84439; 84443; 85025

== ENCOUNTER 2024-05-02 10:43 | Outpatient (AMB) | payer MEDICARE, SELFPAY ==
--- NOTE | 2024-05-02 11:03 | A.OFFVIS_ITS ---
Intake Vital Signs 05/02/24 11:04 Height 6 ft Weight 246 lb BMI 33.4 BP 152/80 H Blood Pressure Location Lt brachial Position Sitting Pulse 47 L Pulse Source Pulse Oximeter Pulse Oximetry (%) 98 Oxygen Delivery Method Room Air Intake Visit Reasons: sawv Allergies atorvastatin Allergy (Unknown, Verified 05/02/24 11:07) Unknown Sulfa (Sulfonamide Antibiotics) Allergy (Unknown, Verified 05/02/24 11:07) stomach upset sulfacetamide Allergy (Unknown, Verified 05/02/24 11:07) Unknown Medication List - Last Reconciled 05/02/24 by Norma Reyes MD ascorbate calcium (vitamin C) 1 g PO DAILY atenolol 50 mg PO DAILY [Black Smart extract ] cholecalciferol (vitamin D3) 25 mcg PO DAILY febuxostat 40 mg PO DAILY naproxen 250 mg PO BID PRN pravastatin 10 mg PO DAILY HPI sawv HPI Details 73-year-old obese male with degenerative disc disease lumbar gout coming in for an annual well visit last seen in 10/09/2023. Patient's colonosc opy was last done in March 2016. Review of the notes in November had an ER visit for right footdrop as well as pain on the right lower extremity MRI of the lumbar spine demonstrated large right foraminal disc herniation compressing on the L5 nerve root. Patient elected to proceed with surgical intervention right L5-S1 TLIF patient has been following up with [facility] also seen in October 2023 lumbar radiculopathy. 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 drop foot problem - had PT done, mild hearing loss- seen Dr. Castaneda [facility] Medical History (Updated 05/02/24 @ 11:47 by Norma Reyes MD) Tinnitus Medicare annual wellness visit, initial Lumbar degenerative disc disease Left sided sciatica Swelling of left index finger Elevated PSA Thoracic outlet syndrome Vitamin D deficiency Osteoarthritis Gout Obesity (BMI 30-39.9) Psoriasis Alcohol abuse Hypercholesterolemia Hypertension Surgical History H/O myringotomy Social History (Updated 05/02/24 @ 11:42 by Norma Reyes MD) Housing: House Alcohol intake: current Alcohol type: beer Comment: once a month 1-2 drinks Patient Tobacco Use Status: Former Tobacco user Tobacco use type: Cigarette Years Smoked: stopped 1984 e-Cigarette/Vaping Use: Never Used Second Hand Smoke Exposure: No Current occupational status: retired Current occupation: rt handed Cognitive needs: No Hearing needs: No Vision needs: No Questionnaire Medicare Wellness Checkup [age] What gender do you identify with?: male During the past 4 weeks, how much have you been bothered by emotional problems such as feeling anxious, depressed, irritable, sad or downhearted, and blue?: slightly During the past 4 weeks, has your physical & emotional health limited your social activities with family, friends, neighbors, or groups?: not at all During the past 4 weeks, how much bodily pain have you generally had?: mild pain During the past 4 weeks, was someone available to help you if you needed & wanted help?: no, not at all During the past 4 weeks, what was the hardest physical activity you could do for at least 2 minutes?: moderate Can you get to places out of walking distance without help? (For eg., can you travel alone on buses, taxis or drive your car?): Yes Can you go shopping for groceries or clothes without someone's help?: Yes Can you prepare your own meals?: Yes Can you do your housework without help?: Yes Because of any health problems, do you need the help of another person with your personal care needs such as eating, bathing, dressing or getting around the house?: No Can you handle your own money without help?: Yes During the past 4 weeks, how would you rate your health in general?: good During the past 4 weeks how have things been going for you?: good & bad parts about equal Are you having difficulties driving your car?: no Do you always fasten your seat belt when you are in a car?: yes, usually During past 4 weeks, have you been bothered by the following: never: Falling or dizzy when standing up, Trouble eating well?, Teeth or denture problems? and Problems using the telephone?, seldom: Tiredness or fatigue? and sometimes: Sexual problems? Have you fallen 2 or more times in the past year?: No Are you afraid of falling?: Yes Are you a smoker?: no During the past 4 weeks, how many drinks of wine, beer, or other alcoholic beverages did you have?: 2-5 drinks per week Do you exercise for about 20 minutes 3 or more times a week?: yes, most of the time Have you been given information to help with the following?: yes: Hazards in your house that might hurt you? and yes: Keeping track of your medications? How often do you have trouble taking medicines the way you have been told to take them?: I always take medicine as prescribed How confident are you that you can control & manage most of your health problems?: very confident What is your race?: White PHQ-9 Over the last 2 weeks, how often have you been bothered by any of the following problems? 1. Little interest or pleasure in doing things: not at all 2. Feeling down, depressed, or hopeless: several days 3. Trouble falling or staying asleep, or sleeping too much: several days 4. Feeling tired or having little energy: several days 5. Poor appetite or overeating: not at all 6. Feeling bad about yourself - or that you are a failure or have let yourself or your family down: not at all 7. Trouble concentrating on things, such as reading the newspaper or watching television: several days 8. Moving or speaking so slowly that other people could have noticed. Or the opposite - being so fidgety or restless that you have been moving around a lot more than usual: not at all 9. Thoughts that you would be better off or of hurting yourself in some way: not at all Total score: 4 Depression Screening Interpretation: Positive Depression Screening Done: Yes 58027 - PHQ-9 Billing: Yes Source: Developed by Drs. Vj Casanova, Elvira Cobian, Wagner Anna and colleagues, with an educational tere from [employer]. Review of Systems Const Denies poor appetite and Denies weakness Eyes Denies no additional complaints ENT Reports Normal hearing present, Denies dizziness, Denies nasal congestion, Denies tinnitus and Denies sore throat Card Denies chest pain, Denies syncope, Denies rapid heart rate and Denies dyspnea Resp Denies cough and Denies dyspnea GI Denies change in stool character, Reports constipation, Denies diarrhea, Denies nausea and Denies vomiting Denies dysuria and Denies urinary frequency Neuro Reports Normal hearing present, Denies confusion, Denies dizziness, Denies syncope and Denies weakness Psych Denies confusion Physical Exam Vital Signs: Last Vital Signs Pulse 47 L 05/02/24 11:04 BP 152/80 H 05/02/24 11:04 Pulse Ox 98 05/02/24 11:04 Oxygen Delivery Method Room Air 05/02/24 11:04 BMI result Body Mass Index 33.4 Const General: No confusion Orientation/consciousness: No confusion HEENT Head: Yes normocephalic Ears: external ears normal and TM's normal bilaterally Face and sinus: Yes normal facial exam Mouth: moist mucous membranes Throat: Yes tonsils normal Eyes Conjunctivae: conjunctivae normal Pupils: Equal, round and reactive pupils present and Pupil accommodation reflex normal Direct Ophthalmoscopy: normal light reflex Neck Neck: No lymphadenopathy Thyroid: Thyroid normal Chest Chest palpation & inspection: normal inspection of the chest Resp Effort & Inspection: normal respiratory effort and no audible wheezes Auscultation: clear to auscultation bilaterally, no crackles, no wheezes and lung sounds not diminished Cardio Rate: regular rate Rhythm: regular rhythm Peripheral pulses: radial pulses present and dorsalis pedis present GI Other: guaiac negative prostate Normal size Palpation (GI): no masses Auscultation: normal bowel sounds and normoactive bowel sounds Rectal Exam - Male: Yes deferred Male General Exam: Yes normal external exam Skin General skin exam: no rashes or lesions noted Rashes: no rashes Neuro Other: R no dorsiflexion L Normal General: No confusion Cranial nerves: Yes Equal, round and reactive pupils present and Yes Normal hearing present Cognition (Neuro): normal cognition Gait exam (Neuro): Normal gait present Motor exam (neuro): 5/5 motor strength present throughout Deep tendon reflexes (DTR's): Right brachioradialis reflex intensity grade: 2+, Left brachioradialis reflex intensity grade: 2+, Right patellar reflex intensity grade: 2+ and Left patellar reflex intensity grade: 2+ Extrem General: No edema Assessment & Plan Assessment & Plan (1) Medicare annual wellness visit, subsequent: Code(s): Z00.00 - Encounter for general adult medical examination without abnormal findings Plan: Patient is advised to eat healthy, keep well hydrated, keep active and have adequate sleep. (2) Gout: Comment: Dr. Abdullahi in [facility] Code(s): M10.9 - Gout, unspecified Qualifiers: Gout site: multiple sites Gout etiology: other secondary cause Chronicity: chronic Presence of tophus: with tophus Qualified Code(s): M1A.49X1 - Other secondary chronic gout, multiple sites, with tophus (tophi) Plan: Patient follows up with Rheumatology and treated with febuxostat (3) Hypertension: Code(s): I10 - Essential (primary) hypertension Plan: Continue with blood pressure medication. Decrease salt intake and exercise on atenolol 50 mg once a day (4) Hypercholesterolemia: Code(s): E78.00 - Pure hypercholesterolemia, unspecified Plan: Avoid fried foods, chicken skin, eggs, butter margarine, pastries and meat. Be it pork or beef they have a lot of cholesterol LDL goal of less than 130 and triglyceride of less than 150 on pravastatin 10 mg once a day (5) Obesity (BMI 30-39.9): Code(s): E66.9 - Obesity, unspecified Plan: Diet and exercise (6) Elevated PSA: Code(s): R97.20 - Elevated prostate specific antigen [PSA] Plan: Discussed about urology referral (7) Psoriasis: Code(s): L40.9 - Psoriasis, unspecified Plan: Continue to follow-up with dermatology (8) Lumbosacral radiculopathy at L5: Comment: Status post TLIF 2023 transforaminal lumbar interbody fusion Code(s): M54.17 - Radiculopathy, lumbosacral region Plan: 11/2023 TLIF transforaminal lumbar interbody fusion (9) Right foot drop: Code(s): M21.371 - Foot drop, right foot Plan: will call for referral to Physical therapy [facility] (10) Vitamin D deficiency: Code(s): E55.9 - Vitamin D deficiency, unspecified Plan: take vitamin D Orders: Orders ABO RH Type 3 Months M1A.49X1 - Other secondary chronic gout, multiple sites, with tophus (tophi) Uric Acid 3 Months M1A.49X1 - Other secondary chronic gout, multiple sites, with tophus (tophi) Hemoglobin A1c 3 Months R73.9 - Hyperglycemia, unspecified Comprehensive Met. Panel 3 Months R73.9 - Hyperglycemia, unspecified Thyroid Stimulating Hormone 3 Months R73.9 - Hyperglycemia, unspecified Complete Blood Count Auto Diff 3 Months R73.9 - Hyperglycemia, unspecified Lipid Panel 3 Months E78.00 - Pure hypercholesterolemia, unspecified, R73.9 - Hyperglycemia, unspecified Vitamin B12 and Folate 3 Months R73.9 - Hyperglycemia, unspecified Free T4 (Free Thyroxine) 3 Months R73.9 - Hyperglycemia, unspecified Referrals Rheumatology Referral M1A.49X1 - Other secondary chronic gout, multiple sites, with tophus (tophi) Quality Reporting (2019) Depression/Bipolar (159/160/161/177) PHQ-9: Total score: 4 Coding Level of Care Code Medicare Subsequent (G0439) Diagnoses Medicare annual wellness visit, subsequent Z00.00 Other secondary chronic gout of multiple sites with tophus M1A.49X1 Gout site: multiple sites Gout etiology: other secondary cause Chronicity: chronic Presence of tophus: with tophus Hypertension I10 Hypercholesterolemia E78.00 Obesity (BMI 30-39.9) E66.9 Elevated PSA R97.20 Psoriasis L40.9 Lumbosacral radiculopathy at L5 M54.17 Right foot drop M21.371 Vitamin D deficiency E55.9
[2024-05-02 11:04] VITALS: BP 152/80; PULSE 47; O2SAT 98; BMI 33.4
== END 2024-05-02 12:17 | disposition home or self-care (01) ==
PROVIDERS: PCP Internal Medicine; Visit Provider Internal Medicine
DX: Z00.00 Encounter for general adult medical examination without abnormal findings (principal); M1A.49X1 Other secondary chronic gout, multiple sites, with tophus (tophi); I10 Essential (primary) hypertension; E78.00 Pure hypercholesterolemia, unspecified; E66.9 Obesity, unspecified; R97.20 Elevated prostate specific antigen [PSA]; L40.9 Psoriasis, unspecified; M54.17 Radiculopathy, lumbosacral region; M21.371 Foot drop, right foot; E55.9 Vitamin D deficiency, unspecified
CPT/HCPCS: G0439

== ENCOUNTER 2024-05-25 09:24 | Outpatient (AMB) | payer MEDICARE, SELFPAY ==
--- NOTE | 2024-05-25 09:58 | MHC.OFFVIS ---
Intake Visit Reasons: 1Y Follow Up-PSA(set) Intake Note: Patient is Present for Follow Up PSA Urology Medication:None Antibiotic Allergies: Sulfa Blood Thinners: None PSA Completed 04/2024 Patient has some concerns he would like to discuss with Provider. Patient states he will go into detail once provider steps in Administrative Technician Required: No Accompanied by: Self / Same As Patient Allergies atorvastatin Allergy (Unknown, Verified 05/25/24 10:01) Unknown Sulfa (Sulfonamide Antibiotics) Allergy (Unknown, Verified 05/25/24 10:01) stomach upset sulfacetamide Allergy (Unknown, Verified 05/25/24 10:01) Unknown Medication List - Last Reconciled 05/25/24 by Bakari Esteban MD ascorbate calcium (vitamin C) 1 g PO DAILY atenolol 50 mg PO DAILY [Black Smart extract ] cholecalciferol (vitamin D3) 25 mcg PO DAILY febuxostat 40 mg PO DAILY naproxen 250 mg PO BID PRN pravastatin 10 mg PO DAILY HPI Comments Details: Franck BROWN is a very pleasant male. He is a patient of Dr Reyes. He is seen for the following urologic conditions. - elevated PSA PSA stable since last year - PSA 4.1, not on medication, high free percentage Continue yearly evaluation Maxeran not have caffeine prior to test Elevated PSA/Abnormal KRISTY:? He presents for ?further evaluation of elevated PSA ?- remains stable at followup - noctruria x2, effective emptying ? Current management is?no medication ? Laboratory investigations include?a total PSA evaluation ?12/05 5.2, 10/08 3.5, 11/09 5.1 20%, 04/08 PSA 4.0 24%, 05/10 3.8, 05/11 4.4 30%. 05/12 4.1 30%, 05/13 5.1 31% PCPT <5% High Risk ? Indiviudalized Prostate Cancer Risk Calculator?5-10% high risk, Would like to continue with observation and understands and accepts the risks of a possible delay in diagnosis.? A TRUS biopsy? has ?been performed and is negative 2011 ? Symptoms include?7/18 , incomplete emptying, weak stream, and are stable.? Overall symptoms are?mild.? Associated conditions? erectile dysfunction ?Yes ? Therapeutic plan will be?continued surveillance [facility] Medical History Tinnitus Medicare annual wellness visit, initial Lumbar degenerative disc disease Left sided sciatica Swelling of left index finger Elevated PSA Thoracic outlet syndrome Vitamin D deficiency Osteoarthritis Gout Obesity (BMI 30-39.9) Psoriasis Alcohol abuse Hypercholesterolemia Hypertension Surgical History H/O myringotomy Social History Housing: House Alcohol intake: current Alcohol type: beer Comment: once a month 1-2 drinks Patient Tobacco Use Status: Former Tobacco user Tobacco use type: Cigarette Years Smoked: stopped 1984 e-Cigarette/Vaping Use: Never Used Second Hand Smoke Exposure: No Current occupational status: retired Current occupation: rt handed Cognitive needs: No Hearing needs: No Vision needs: No Review of Systems Const Denies chills and Denies fever(s) Card Reports no additional complaints and Denies syncope Resp Denies cough GI Denies abdominal pain and Denies heartburn Reports as per HPI and Denies change in libido Neuro Denies syncope Psych Denies change in libido Endo Denies change in libido Physical Exam Const General: cooperative, healthy appearing, comfortable and no acute distress Orientation/consciousness: patient oriented x3 HEENT Face and sinus: Yes normal facial exam Mouth: moist mucous membranes Neck Neck: Yes normal visual inspection, Yes full ROM and Yes trachea midline Chest Chest palpation & inspection: normal inspection of the chest Resp Effort & Inspection: normal respiratory effort, able to speak in complete sentences and no respiratory distress GI Inspection: Yes normal to inspection Back/Spine/Pelvis Cervical Spine: normal cervical lordosis Thoracic/Lumbar Spine: thoracic and lumbar spine normal to inspection Skin General skin exam: no rashes or lesions noted Neuro General: patient oriented x3, gait normal, tone normal and moves all extremities Extrem General: Yes normal to inspection and Yes capillary refill normal Assessment & Plan Assessment & Plan (1) Erectile dysfunction: Code(s): N52.9 - Male erectile dysfunction, unspecified Category: Medical Plan Trial Viagra Twelve month follow-up PSA Orders: Orders PSA,Total (Free>4and<10) 364 Days R97.20 - Elevated prostate specific antigen [PSA] Medications: New sildenafil administer 60 minutes before intended activity 100 mg PO ONCE 30 days PRN 30 tabs 1RF sexual activity N52.9 - Male erectile dysfunction, unspecified Patient Instructions: Imaging studies, laboratory and physical exam results were discussed and reviewed in detail. No major barriers to patient understanding were identified. An opportunity to ask questions regarding the treatment plan was provided. All questions were answered. The patient expressed understanding and agreement with the above treatment plan. The patient is aware they should contact our office by phone for worsening of their current condition or the appearance of new urologic symptoms. Compliance is encouraged with any medications and followup testing that is ordered. It is a privilege to participate in the urologic care of your patient. If you have any questions or concerns regarding treatment for the above conditions, or other urologic issues, please do not hesitate to contact me. The office telephone contact is [phone]. This note is constructed using voice recognition software. While every effort has been made to ensure accuracy artificial limb maker errors may have been included. Yours sincerely, Dr Bakari Esteban MD, [facility] - Urology Providers of Expert, Compassionate Care for the Genitourinary System Coding Level of Care Code Est Pt Level 4 (44322) Diagnoses Erectile dysfunction N52.9
== END 2024-05-25 10:20 | disposition home or self-care (01) ==
PROVIDERS: PCP Internal Medicine; Visit Provider Urology
DX: N52.9 Male erectile dysfunction, unspecified (principal)
CPT/HCPCS: 99214

== ENCOUNTER → 2024-05-25 09:24 | Outpatient (BNVA) | payer MEDICARE, SELFPAY | PROVIDERS: PCP Internal Medicine; Visit Provider Urology | DX: R97.20 Elevated prostate specific antigen [PSA] (principal); N52.9 Male erectile dysfunction, unspecified | CPT/HCPCS: 99212 ==

== ENCOUNTER 2024-07-12 10:40 | Outpatient (AMB) | payer MEDICARE, SELFPAY ==
--- NOTE | 2024-07-12 10:50 | MHC.OFFVIS ---
Vital Signs 07/12/24 10:55 Height 6 ft Weight 248 lb 0.321 oz BMI 33.6 BP 140/72 H Blood Pressure Location Rt brachial Position Sitting Pulse 51 Pulse Source Pulse Oximeter Pulse Oximetry (%) 99 Oxygen Delivery Method Room Air Intake Visit Reasons: Gout Intake Note: Patient presents for Gout. Allergies atorvastatin Allergy (Unknown, Verified 07/12/24 10:54) Unknown Sulfa (Sulfonamide Antibiotics) Allergy (Unknown, Verified 07/12/24 10:54) stomach upset sulfacetamide Allergy (Unknown, Verified 07/12/24 10:54) Unknown Medication List - Last Reconciled 07/12/24 by Eddie Dumont MD ascorbate calcium (vitamin C) 1 g PO DAILY atenolol 50 mg PO DAILY [Black Smart extract ] cholecalciferol (vitamin D3) 25 mcg PO DAILY febuxostat 40 mg PO DAILY naproxen 250 mg PO BID PRN pravastatin 10 mg PO DAILY sildenafil 100 mg PO ONCE PRN 30 days HPI Comments Details: This is a 73-year-old male who presents for evaluation of gout. He stated that he would have pain swelling and stiffness of his fingers. He was evaluated by a embroidery worker back in August and was diagnosed with gout. He was started on febuxostat. States that since then he has had significant improvement in his symptoms. He states that he was able to play the guitar again. There was a tophus on his left thumb that resolved. He has history of psoriasis for years. He denies any history of kidney stones. He is unaware of any family history of an autoimmune rheumatic disease. He has cut down significantly on beer drinking. He also cut down other high purine containing foods. Has no complaints today. [facility] Medical History (Updated 07/12/24 @ 11:26 by Eddie Dumont MD) Footdrop Tinnitus Medicare annual wellness visit, initial Lumbar degenerative disc disease Left sided sciatica Swelling of left index finger Elevated PSA Thoracic outlet syndrome Vitamin D deficiency Osteoarthritis Obesity (BMI 30-39.9) Psoriasis Alcohol abuse Hypercholesterolemia Hypertension Surgical History H/O myringotomy Social History Housing: House Alcohol intake: current Alcohol type: beer Comment: once a month 1-2 drinks Patient Tobacco Use Status: Former Tobacco user Tobacco use type: Cigarette Years Smoked: stopped 1984 e-Cigarette/Vaping Use: Never Used Second Hand Smoke Exposure: No Current occupational status: retired Current occupation: rt handed Cognitive needs: No Hearing needs: No Vision needs: No Review of Systems Musc Denies arthralgias, Denies joint swelling, Reports muscle weakness and Denies stiffness Physical Exam Vital Signs: Last Vital Signs Pulse 51 07/12/24 10:55 BP 140/72 H 07/12/24 10:55 Pulse Ox 99 07/12/24 10:55 Oxygen Delivery Method Room Air 07/12/24 10:55 BMI result Body Mass Index 33.6 Const General: cooperative, healthy appearing and comfortable Nutritional Appearance: obese Orientation/consciousness: patient oriented x3 Limitations: ambulation with cane HEENT Head: Yes normocephalic and Yes atraumatic Mouth: moist mucous membranes Resp Effort & Inspection: normal respiratory effort and able to speak in complete sentences Auscultation: clear to auscultation bilaterally Cardio Rate: regular rate Skin Other: Rosacea on face Psoriasis patches on extensor aspect of both elbows, his scalp Neuro General: patient oriented x3 Extrem Other: Bilateral trochanteric bursae full of tophi Osteoarthritic changes of both hands with no active synovitis Assessment & Plan Assessment & Plan (1) Tophaceous gout: Comment: dx 08/2023 Febuxostat started 08/2023 effective Code(s): M1A.9XX1 - Chronic gout, unspecified, with tophus (tophi) Category: Medical Plan: This is a 73-year-old male who presents for evaluation of gout. On exam he has several tophi involving both trochanteric bursae. He was started on febuxostat in 08/2023 with significant improvement of his gout and complete control of gout flare-ups. He has no complaints today Check uric acid level today and adjust febuxostat dose accordingly Labs before next visit in 3 months Plan I spent 35 minutes reviewing patient's chart, evaluating patient, ordering diagnostic workup, counseling patient and documenting in the chart Orders: Orders Uric Acid Today M1A.49X1 - Other secondary chronic gout, multiple sites, with tophus (tophi) Comprehensive Met. Panel 3 Months M1A.9XX1 - Chronic gout, unspecified, with tophus (tophi) Comprehensive Met. Panel Today M1A.49X1 - Other secondary chronic gout, multiple sites, with tophus (tophi) Uric Acid 3 Months M1A.9XX1 - Chronic gout, unspecified, with tophus (tophi) Coding Level of Care Code New Pt Level 3 (28822) Diagnoses Tophaceous gout M1A.9XX1
[2024-07-12 10:55] VITALS: BP 140/72; PULSE 51; O2SAT 99; BMI 33.6
== END 2024-07-12 11:24 | disposition home or self-care (01) ==
PROVIDERS: PCP Internal Medicine; Visit Provider Student in an Organized Health Care Education/Training Program
DX: M1A.9XX1 Chronic gout, unspecified, with tophus (tophi) (principal)
CPT/HCPCS: 99203

== ENCOUNTER 2024-07-12 10:40 | Outpatient (REF) | payer MEDICARE, SELFPAY ==
[2024-07-12 13:29] LABS: Alanine Aminotransferase 16 U/L (0-40); Albumin Level 4.2 g/dL (3.5-5.0); Alkaline Phosphatase 79 U/L (39-117); Anion Gap 13 (12-20); Aspartate Amino Transferase 25 U/L (5-37); Bilirubin Total 0.6 mg/dL (0.0-1.0); Blood Urea Nitrogen 17 mg/dL (9-16); Calcium 9.7 mg/dL (8.4-10.2); Carbon Dioxide 27 mmol/L (22-29); Chloride 105 mmol/L (96-108); Estimated Glomerular Filt Rate > 60; Glucose Random 87 mg/dL (60-115); Potassium 4.4 mmol/L (3.3-5.1); Sodium 141 mmol/L (135-145); Total Protein 7.4 g/dL (6.5-8.0); Uric Acid 5.1 mg/dL (3.4-7.0)
== END 2024-07-12 10:41 | disposition home or self-care (01) ==
LOC: HO.LAB 10:40
PROVIDERS: PCP Internal Medicine; Visit Provider Student in an Organized Health Care Education/Training Program
DX: M1A.49X1 Other secondary chronic gout, multiple sites, with tophus (tophi) (principal)
CPT/HCPCS: 36415; 80053; 84550; 99202

== ENCOUNTER 2024-10-30 11:20 | Outpatient (REF) | payer MEDICARE, SELFPAY ==
--- OUTSIDE RECORDS SUMMARY | 2024-10-30 12:36 | XMS_ITS ---
Author Name [facility] Organization Unknown History of Medication Use Medication Directions Dispensed Refills Start Date End Date Stat atenolol (TENORMIN) 50 MG tablet Take 1 tablet (50 mg total) by mouth daily. 05/31/2023 active pravastatin (PRAVACHOL) 10 MG tablet Take 1 tablet (10 mg total) by mouth daily. 07/04/2023 active
--- OUTSIDE RECORDS SUMMARY | 2024-10-30 12:36 | XMS_ITS | Encounter Summary ---
Author Organization Formerly [facility] Address [address] [place] [address] Care Team Providers Care Tectonophysicist Name Role Phone Norma Reyes MD Primary Care Provider [phone] Encounter Details Date Type Department Care Team (Late st Contact Info) Description 09/24/2023 Scanned Document [facility] Rheumatology [address] [phone] Rheumatology, Scan Social History Tobacco Use Types Packs/Day Years Used Date Smoking Tobacco: Former Cigarettes Q uit: 1985 Smokeless Tobacco: Never Alcohol Use Standard Drinks/Week Comments Yes 2 (1 standard drink = 0.6 oz pur e alcohol) daily Sex and Gender Information Value Date Recorded Sex Assigned at Male 08/03/2023 3:49 PM EST Gender Identity Male 08/03/2023 3:49 PM EST Sexual Orientation Heterosexual (straight) 08/03 3:49 PM EST documented as of this encounter Plan of Treatment Not on file documented as of this encounter Visit Diagnoses Not on filedocumented in this encounter Care Teams Tectonophysicist Relationship Specialty Start Date End Date Norma Reyes MD [address] [place] [address] [place] [id number] PCP - General Internal Medicine 08/03/23 documented as of this encounter
--- OUTSIDE RECORDS SUMMARY | 2024-10-30 12:36 | XMS_ITS | Clinical Summary ---
Author Organization [facility] Address [address] [place] [address] Care Team Providers Care Kiln Stacker Name Role Phone Norma eRyes MD Primary Care Provider [phone] Allergies Active Allergy Reactions Criticality Noted Date Comments Sulfa Antibiotics GI Intolerance/Nausea/Vomiting Low 10/22/2020 Medications Medication Sig Dispensed Refills Start Date End Date Status atenolol (TENORMIN) 50 MG tablet Take 1 tablet (50 mg total) by mouth daily. 05/31/2023 Active pravastatin (PRAVACHOL) 10 MG tablet Take 1 tablet (10 mg total) by mouth daily. 07/04/2023 Active naproxen sodium (ALEVE) 220 mg tablet Take 1 tablet (220 mg total) by mouth 2 (two) times a day with meals. Take with meals or food to reduce stomach upset. Active Ascorbic Acid (vitamin C) 1000 MG tablet Take 1 tablet (1,000 mg total) by mouth daily. Active febuxostat (ULORIC) 40 MG tabletIndications:Topha ceous gout,Primary osteoarthritis of both hands,High risk medication use,Psoriasis,Inflammat ory arthropathy Take 1 tablet (40 mg total) by mouth daily. 90 tablet 1 04/18/2024 Active predniSONE (DELTASONE) 10 MG tabletIndications:Topha ceous gout,Primary osteoarthritis of both hands,High risk medication use,Psoriasis,Inflammat ory arthropathy Take 40 mg (= 4 tablets) by mouth daily for 3 days, then 30 mg (= 3 tablets) daily for 3 days, then 20 mg (= 2 tablets) daily for 3 days, then 10 mg (= 1 tablet) daily for 3 days. Take with food. 30 tablet 04/18/2024 Active Active Problems Problem Noted Date Diagnosed Date High risk medication use 09/21/2023 Polyarthralgia 08/16/2023 Bilateral hand pain 08/16/2023 Primary osteoarthritis of both hands 08/16/2023 Tophaceous gout 08/16/2023 Psoriasis 08/16/2023 Social History Tobacco Use Types Packs/Day Years Used Date Smoking Tobacco: Former Cigarettes Q uit: 1985 Smokeless Tobacco: Former Alcohol Use Standard Drinks/Week Comments Yes 2 (1 standard drink = 0.6 oz pur e alcohol) daily Sex and Gender Information Value Date Recorded Sex Assigned at Male 08/03/2023 3:49 PM EST Gender Identity Male 08/03/2023 3:49 PM EST Sexual Orientation Heterosexual (straight) 08/03 3:49 PM EST Last Filed Vital Signs Vital Sign Reading Time Taken Comments Blood Pressure 146/75 08/16/2023 1:10 PM EST Pulse 63 08/16/2023 1:10 PM EST Temperature - - Respiratory Rate - - Oxygen Saturation 97% 08/16/2023 1:10 PM EST Inhaled Oxygen Concentration - - Weight 107 kg (235 lb) 04/18/2024 9:28 AM EDT Height 182.9 cm (6') 04/18/2024 9:28 AM EDT Body Mass Index 31.87 04/18/2024 9:28 AM EDT Plan of Treatment Health Maintenance Due Date Last Done Comments Hepatitis C Virus Screening 1950 DTaP/Tdap/Td Vaccines (1 - Tdap) 1968 Colonoscopy 1994 Pneumococcal Vaccines 50+ (1 of 1 - PCV) 11/20/1999 Zoster (Shingles) Vaccine (1 of 2) 11/20/1999 Abdominal Aortic Aneurysm (A AA) Screening 2014 Influenza Vaccine 04/20/2024 COVID-19 Vaccine (1 - 2023-2 5 season) 2024 RSV Vaccine 60 years and old er and Patients (1 - 1-dose 75+ series) 2024 Hepatitis B Vaccines Aged Out No long er eligible based on patient's age to complete this topic Care Teams Kiln Stacker Relationship Specialty Start Date End Date Po, Norma Hahn MD [address] [facility] [place] [address] PCP - General Internal Medicine 08/03/23
[2024-10-30 12:55] LABS: Appearance Urine Clear; Color Urine Yellow; Glucose Urine UA Negative (Negative); Leukocyte Esterase Urine Negative (Negative); Nitrite Urine Negative (Negative); PH 5.5 (5.0-9.0); Urine Blood Negative (Negative); Urine Ketones Negative (Negative); Urine Protein Negative (Neg-Trace)
[2024-10-30 12:58] LABS: Bacteria Urine None Seen (None Seen); Hyaline Casts Urine 0-2 /LPF (0-2); RBC Urine 0-2 /HPF (0-2); Squamous Epithelial Cell Urine 0-2 /HPF (0-2); WBC Urine 0-5 /HPF (0-5)
[2024-10-30 13:09] LABS: Alanine Aminotransferase 15 U/L (0-40); Albumin Level 4.2 g/dL (3.5-5.0); Alkaline Phosphatase 76 U/L (39-117); Anion Gap 14 (12-20); Aspartate Amino Transferase 25 U/L (5-37); Bilirubin Total 0.6 mg/dL (0.0-1.0); Blood Urea Nitrogen 22 mg/dL (9-16); Calcium 9.3 mg/dL (8.4-10.2); Carbon Dioxide 29 mmol/L (22-29); Chloride 104 mmol/L (96-108); Estimated Glomerular Filt Rate > 60; Glucose Random 96 mg/dL (60-115); Potassium 4.6 mmol/L (3.3-5.1); Sodium 142 mmol/L (135-145); Total Protein 7.8 g/dL (6.5-8.0); Uric Acid 4.4 mg/dL (3.4-7.0)
== END 2024-10-30 11:21 | disposition home or self-care (01) ==
LOC: HO.10HDL 11:20
PROVIDERS: Student in an Organized Health Care Education/Training Program; Visit Provider Urology
DX: M1A.9XX1 Chronic gout, unspecified, with tophus (tophi) (principal); R39.9 Unspecified symptoms and signs involving the genitourinary system
CPT/HCPCS: 36415; 80053; 81001; 84550; 87086

== ENCOUNTER 2024-11-07 10:45 | Outpatient (AMB) | payer MEDICARE, SELFPAY ==
--- NOTE | 2024-11-07 10:47 | A.OFFPC_ITS ---
Vital Signs 11/07/24 10:49 11/07/24 10:54 Height 6 ft 6 ft Weight 250 lb BMI 33.9 BP 136/84 Blood Pressure Location Lt brachial Position Sitting Pulse 52 Pulse Source Pulse Oximeter Pulse Oximeter Temp Source Temporal Artery Scan Pulse Oximetry (%) 98 Oxygen Delivery Method Room Air Room Air Intake Visit Reasons: Podiatry referral Intake Note: Patient is here to follow up on Podiatry referral. Drying Tumbler Operator Required: No Screed Person: Not Required per policy Accompanied by: Self / Same As Patient Allergies atorvastatin Allergy (Unknown, Verified 11/07/24 10:49) Unknown Sulfa (Sulfonamide Antibiotics) Allergy (Unknown, Verified 11/07/24 10:49) stomach upset sulfacetamide Allergy (Unknown, Verified 11/07/24 10:49) Unknown Tobacco use date assessed: 11/07/24 Fall risk assessment: No Falls in past year Last assessed Fall Risk: 11/07/24 Dental Screening Dental Screen Date: 11/07/24 Did you have a dental visit in the last 12 months?: Yes Did you have a dental problem in the last 6 months where you did not have access to dental care?: No Was dental information given to patient?: Patient has dentist HPI Podiatry referral HPI Details 73-year-old male with past medical histo ry of degenerative disc disease, hypercholesterolemia, hypertension, obesity, and gout last seen 04/[address] Reyes coming in for acute problem. Patient has been following with physical therapy through [facility] recommended getting an ankle-foot orthotics and recommended a podiatry evaluation. He has been following with Rheumatology for gout as well. Patient has been seeing [facility] Physical therapy was diagnosed with right footdrop several years ago. In November 2023 patient had surgery with [facility] Neurosurgery to treat the footdrop which was unsuccessful. His recommended by his physical therapist to see Podiatry and have orthotic made. [facility] Medical History (Updated 07/12/24 @ 11:26 by Eddie Dumont MD) Footdrop Tinnitus Medicare annual wellness visit, initial Lumbar degenerative disc disease Left sided sciatica Swelling of left index finger Elevated PSA Thoracic outlet syndrome Vitamin D deficiency Osteoarthritis Obesity (BMI 30-39.9) Psoriasis Alcohol abuse Hypercholesterolemia Hypertension Surgical History H/O myringotomy Social History Housing: House Alcohol intake: current Alcohol type: beer Comment: once a month 1-2 drinks Patient Tobacco Use Status: Former Tobacco user Tobacco use type: Cigarette Years Smoked: stopped 1984 e-Cigarette/Vaping Use: Never Used Second Hand Smoke Exposure: No service: No Current occupational status: retired Current occupation: rt handed Cognitive needs: No Hearing needs: No Vision needs: No Questionnaire PHQ-9 Over the last 2 weeks, how often have you been bothered by any of the following problems? 1. Little interest or pleasure in doing things: not at all 2. Feeling down, depressed, or hopeless: not at all 3. Trouble falling or staying asleep, or sleeping too much: not at all 4. Feeling tired or having little energy: not at all 5. Poor appetite or overeating: not at all 6. Feeling bad about yourself - or that you are a failure or have let yourself or your family down: not at all 7. Trouble concentrating on things, such as reading the newspaper or watching television: not at all 8. Moving or speaking so slowly that other people could have noticed. Or the opposite - being so fidgety or restless that you have been moving around a lot more than usual: not at all 9. Thoughts that you would be better off or of hurting yourself in some way: not at all Total score: 0 Depression Screening Interpretation: Negative Depression Screening Done: Yes Source: Developed by Drs. Vj Casanova, Elvira Cobian, Wagner Anna and colleagues, with an educational tere from [employer]. Thrive Questionnaire Date Thrive assessed: 11/07/24 I am a: Patient What is your living situation today?: I have a steady place to live Within the past 12 months, did the food you bought not last and you didn't have the money to get more?: Never true Within the past 12 months, did you worry whether your food would run out before you got money to buy more?: Never true Do you have trouble paying for medicines?: No Do you have trouble getting transportation to medical appointments?: No Do you have trouble paying your heating and electricity bill?: No Do you have trouble taking care of your child, family member or friend?: No Do you have trouble with day-to-day activities such as bathing, preparing meals, shopping, managing finances, etc.?: No Are you currently unemployed and looking for a job?: No Are you interested in more education?: No Please select the resources that you would like help with: None Currently or been in a relationship where the following occur: No concerns reported THRIVE Score: 0 AUDIT C Alcohol Use Questionnaire (AUDIT-C) 1. How often do you have a drink containing alcohol?: Monthly or less 2. How many drinks containing alcohol do you have on a typical day when you are drinking?: 1 or 2 3. How often do you have six or more drinks on one occasion?: Never Total Score: 1 ANI-7 AMB Questionnaire ANI-7 Date ANI - 7 assessed: 11/07/24 Feeling nervous, anxious, or on edge: 0 = Not at all Not being able to stop or control worryin = Not at all Worrying too much about different things: 0 = Not at all Trouble relaxin = Not at all Being so restless that it is hard to sit still: 0 = Not at all Becoming easily annoyed or irritable: 0 = Not at all Feeling afraid as if something awful might happen: 0 = Not at all Total ANI-7 score (0-4 normal; 5-9 mild; 10-14 moderate; 15-21 severe): 0 Source: Developed by Drs. Vj Casanova, Elvira Cobian, Wagner Anna and colleagues, with an educational tere from [employer]. Review of Systems Const Denies body aches, Denies chills and Denies fever(s) Eyes Reports no additional complaints ENT Reports no additional complaints Card Denies chest pain, Denies syncope and Denies dyspnea Resp Denies dyspnea GI Reports no additional complaints Musc Reports as per HPI and Reports abnormal gait Neuro Reports abnormal gait and Denies syncope Physical exam (Primary Care) Vital Signs: Last Vital Signs Pulse 52 11/07/24 10:54 BP 136/84 11/07/24 10:54 Pulse Ox 98 11/07/24 10:54 Oxygen Delivery Method Room Air 11/07/24 10:54 BMI result Body Mass Index 33.9 Tobacco/Smoking Status: Tobacco use Status Tobacco use date assessed 11/07/24 11/07/24 10:59 Patient Tobacco Use Status Former Tobacco user 11/07/24 10:59 Tobacco use type Cigarette 11/07/24 10:59 e-Cigarette/Vaping Use Never Used 11/07/24 10:59 PHQ-9: PHQ-9 Score PHQ-9: Total score 0 11/07/24 11:14 Depression Screening Interpretation: Negative Thrive Assessment: Date of Thrive Assessment Date Thrive assessed 11/07/24 11/07/24 10:59 Currently or been in a relationship where the following occur: No concerns repo rted Const General: cooperative, healthy appearing, comfortable and no acute distress Orientation/consciousness: patient oriented x3 HENMT Head: Yes normocephalic Ears: hearing grossly normal bilaterally General nose exam: Normal external nose present Eyes General: appearance normal, both eyes and all related structures Conjunctivae: conjunctivae normal Neck Neck: Yes full ROM and Yes no lymphadenopathy Resp Effort & Inspection: normal respiratory effort Auscultation: clear to auscultation bilaterally, no crackles, no rales, no rhonchi and no wheezes Cardio Rate: regular rate Rhythm: regular rhythm Skin General skin exam: no rashes or lesions noted Neuro General: patient oriented x3 Gait exam (Neuro): Normal gait present Extrem General: Yes normal to inspection, Yes full ROM and No edema Psych Affect: normal affect Attitude: cooperative Insight: Good insight present (Psych) Judgement: Good judgement present (Psych) Coding Level of Care Code Est Pt Level 3 (38822) Diagnoses Right foot drop M21.371 Assessment & Plan Assessment & Plan (1) Right foot drop: Code(s): M21.371 - Foot drop, right foot Category: Medical Plan: Referral placed to Podiatry today for custom orthotic. Continue to follow with physical therapy. Plan This note was constructed using voice recognition software. While every effort has been made to ensure accuracy and tea taster, still areas may have been included sometimes these areas may affect the content or meeting of the given symptoms. Total time spent caring for the patient today was 15 minutes. This includes time spent before the visit reviewing the chart, time spent during the visit, and time spent after the visit and documentation. Orders: Referrals Podiatry Referral M21.371 - Foot drop, right foot
[2024-11-07 10:54] VITALS: BP 136/84; PULSE 52; O2SAT 98; BMI 33.9
--- OUTSIDE RECORDS SUMMARY | 2024-11-07 11:51 | XMS_ITS | Clinical Summary ---
Author Organization [facility] Address [address] [place] [address] Care Team Providers Care Oil Furnace Installer Name Role Phone Norma Reyes MD Primary Care Provider [phone] Allergies Active Allergy Reactions Criticality Noted Date [...] age to complete this topic Care Teams Oil Furnace Installer Relationship Specialty Start Date End Date Po, Norma Hahn MD [address] [facility] [place] [address] PCP - General Internal Medicine 08/03/23
--- OUTSIDE RECORDS SUMMARY | 2024-11-07 11:51 | XMS_ITS | Encounter Summary ---
Author Organization [facility] Address [address] [place] [address] Care Team Providers Care Hand Suture Winder Name Role Phone Norma Reyes MD Primary Care Provider [phone] Encounter Details Date Type Department Care Team (Late st Contact Info) Description 09/24/[address] [facility] Rheumatology [address] [phone] Rheumatology, Scan Social History Tobacco Use Types [...] on filedocumented in this encounter Care Teams Hand Suture Winder Relationship Specialty Start Date End Date Norma Reyes MD [address] [place] [address] [place] [address] PCP - General Internal Medicine 08/03/23 documented as of this encounter
== END 2024-11-07 11:23 | disposition home or self-care (01) ==
PROVIDERS: PCP Internal Medicine
DX: M21.371 Foot drop, right foot (principal)

== ENCOUNTER → 2024-11-07 10:45 | Outpatient (BNVA) | payer MEDICARE, SELFPAY | PROVIDERS: PCP Internal Medicine | DX: M21.371 Foot drop, right foot (principal) | CPT/HCPCS: 99212 ==

== ENCOUNTER 2024-11-08 08:07 | Outpatient (AMB) | payer MEDICARE, SELFPAY ==
--- OUTSIDE RECORDS SUMMARY | 2024-11-08 08:13 | XMS_ITS | Clinical Summary ---
Author Organization [facility] Address [address] [place] [address] Care Team Providers Care Boom Stick Worker Name Role Phone Norma Reyes MD Primary Care Provider [phone] Allergies Active Allergy Reactions Criticality Noted Date [...] age to complete this topic Care Teams Boom Stick Worker Relationship Specialty Start Date End Date Po, Norma Hahn MD [address] [facility] [place] [address] PCP - General Internal Medicine 08/03/23
--- OUTSIDE RECORDS SUMMARY | 2024-11-08 08:13 | XMS_ITS | Encounter Summary ---
Author Organization [facility] Address [address] [place] [address] Care Team Providers Care Director Of Instructional Technology Name Role Phone Norma Reyes MD Primary Care Provider [phone] Encounter Details Date Type Department Care Team (Late st Contact Info) Description 09/24/2023 Scanned Document [facility] Rheumatology [address] [phone] Rheumatology, Scan Social History Tobacco Use Types [...] on filedocumented in this encounter Care Teams Director Of Instructional Technology Relationship Specialty Start Date End Date Norma Reyes MD [address] [place] [address] [place] [address] PCP - General Internal Medicine 08/03/23 documented as of this encounter
--- NOTE | 2024-11-08 08:31 | A.OFFVIS_ITS ---
Vital Signs 11/08/24 08:34 Height 6 ft Weight 249 lb 12.54 oz BMI 33.9 BP 115/70 Blood Pressure Location Rt brachial Position Sitting Pulse 51 Pulse Source Pulse Oximeter Pulse Oximetry (%) 96 Oxygen Delivery Method Room Air Intake Visit Reasons: Gout Intake Note: Patient presents for Gout. Allergies atorvastatin Allergy (Unknown, Verified 11/08/24 08:36) Unknown Sulfa (Sulfonamide Antibiotics) Allergy (Unknown, Verified 11/08/24 08:36) stomach upset sulfacetamide Allergy (Unknown, Verified 11/08/24 08:36) Unknown Medication List - Last Reconciled 11/08/24 by Aury Mason MD allopurinol 200 mg (2 x 100 mg) PO DAILY ascorbate calcium (vitamin C) 1 g PO DAILY atenolol 50 mg PO DAILY [Black Smart extract ] cholecalciferol (vitamin D3) 25 mcg PO DAILY naproxen 250 mg PO BID PRN pravastatin 10 mg PO DAILY sildenafil 100 mg PO ONCE PRN 30 days HPI Comments Details: Patient is a 73-year-old male with hyperlipidemia, generalized anxiety disorder, psoriasis, hypertension and chronic tophaceous gout here today for follow up Interval History: Patient last seen 07/12/[address] Dumont. At that time he was establishing care for the management of his gout. Today, He is here for follow up Has not had any gout flare since that visit Febuxostat not covered by his insurance and so he was switched to allopurinol however patient was told that he should not take allopurinol due to his age Rheumatologic History: Diagnosed with gout 08/2023 Current Rheumatology Medication(s): Febuxostat 80 mg daily [facility] Medical History (Updated 11/08/24 @ 15:08 by Aury Mason MD) Encounter for monitoring febuxostat therapy Footdrop Tinnitus Medicare annual wellness visit, initial Lumbar degenerative disc disease Left sided sciatica Swelling of left index finger Elevated PSA Thoracic outlet syndrome Vitamin D deficiency Osteoarthritis Obesity (BMI 30-39.9) Psoriasis Alcohol abuse Hypercholesterolemia Hypertension Surgical History H/O myringotomy Social History Housing: House Alcohol intake: current Alcohol type: beer Comment: once a month 1-2 drinks Patient Tobacco Use Status: Former Tobacco user Tobacco use type: Cigarette Years Smoked: stopped 1984 e-Cigarette/Vaping Use: Never Used Second Hand Smoke Exposure: No service: No Current occupational status: retired Current occupation: rt handed Cognitive needs: No Hearing needs: No Vision needs: No Review of Systems Const Details: Review of Systems Constitutional: Denies fever, chills, weight loss ENT: Denies vision changes, eye pain or eye redness, dental caries, dry mouth GI: Denies nausea, vomiting, diarrhea, abdominal pain, change in BM Pulm: Denies SOB, BYRNE, hemoptysis, wheezing Cards: Denies chest pain, palpitations Skin: Denies Raynaud's, rash, nail changes, photosensitivity, PEARL PELLER: Denies headaches, weakness, paresthesias, recurrent falls MSK: as per HPI All other systems reviewed and are unremarkable except noted above Physical Exam Vital Signs: Last Vital Signs Pulse 51 11/08/24 08:34 BP 115/70 11/08/24 08:34 Pulse Ox 96 11/08/24 08:34 Oxygen Delivery Method Room Air 11/08/24 08:34 BMI result Body Mass Index 33.9 Vital signs reviewed Physical Examination CONSTITUITIONAL Patient alert and cooperative. Well appearing and in no apparent painful distress HEENT Conjunctiva and sclera clear. ?Pupils equal round and reactive to light. ?No lymphadenopathy. ? CHEST/RESPIRATORY SYSTEM Normal respiratory effort and able to speak in complete sentences. ?Clear to auscultation bilaterally. ?No crackles, rales, rhonchi, wheezes heard. CARDIAC SYSTEM Regular rate and rhythm. ?S1 and S2 heard no murmurs. ?Radial pulses intact bilaterally MSK Hands: ?Good radar operator strength bilaterally. No deformities noted. ?No synovitis noted to the MCPs, PIPs or DIPs. ?No tenderness to palpation of these joints. Scattered tophi noted on his DIPs Wrists: ?Full range of motion at the wrists without pain. ?No tenderness to palpation or synovitis noted to the wrists. Elbows: Full range of motion without pain. Large tophi noted bilaterally Shoulders: Full range of motion without pain. No tenderness, weakness, swelling, increased warmth or erythema. Hips: Full range of motion without pain. Hip bursa: No tenderness to palpation Knees: ?Full range of motion. ?No tenderness, swelling or erythema.? Increased warmth noted bilaterally. No effusion. Bilateral crepitations felt. Ankles: Full range of motion. ?No tenderness, swelling, increased warmth or erythema.? Feet: ?Negative squeeze test. ?No tenderness to palpation or swelling of the MTPs. Tender points:?No tenderness to palpation of the bilateral trapezius, supraspinatus, greater trochanters, anterior costochondral junctions, bilateral gluteal areas, bilateral suboccipital muscle insertions SKIN Skin intact without rashes. 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 Currently on febuxostat and tolerating medication well uric acid is at goal. Unsure of why patient was not started on allopurinol. Attempted to reach out to his previous bilingual inside sales representative Dr. Abdullahi but today's his abdomen day. We will attempt to reach out to him in the future but for now we can continue the febuxostat Plan - Febuxostat 80mg daily - RTC 1 year - Labs before visit: CBC, CMP, ESR, CRP, UA (2) Encounter for monitoring febuxostat therapy: Code(s): Z51.81 - Encounter for therapeutic drug level monitoring; Z79.899 - Other prison (current) drug therapy Category: Medical Plan: #Long-term Current Use of Febuxostat Risks and benefits of Feboxostat discussed with patient Benefits include decreased gout flares, remission of gout and reduction of tophi Discussed that febuxostat has a black box warning indicating an increased risk of from heart related causes and other causes. Other risks associated with this medication include heart arrhythmias, blurred vision, dizziness, shortness of breath, muscle pain and rash Plan I spent 30 minutes reviewing the record and labs, taking a history, examining the patient, discussing the treatment plan, contacting outside rheumatology and documenting in the medical record Coding Level of Care Code Est Pt Level 4 (61960) Complex EM visit Add On G2211 Diagnoses Tophaceous gout M1A.9XX1 Encounter for monitoring febuxostat therapy Z51.81; Z79.899
[2024-11-08 08:34] VITALS: BP 115/70; PULSE 51; O2SAT 96; BMI 33.9
== END 2024-11-08 09:12 | disposition home or self-care (01) ==
PROVIDERS: PCP Internal Medicine; Visit Provider Student in an Organized Health Care Education/Training Program
DX: M1A.9XX1 Chronic gout, unspecified, with tophus (tophi) (principal); Z51.81 Encounter for therapeutic drug level monitoring; Z79.899 Other long term (current) drug therapy
CPT/HCPCS: 99214; G2211

== ENCOUNTER → 2024-11-08 08:07 | Outpatient (BNVA) | payer MEDICARE, SELFPAY | PROVIDERS: PCP Internal Medicine; Visit Provider Student in an Organized Health Care Education/Training Program | DX: M1A.9XX1 Chronic gout, unspecified, with tophus (tophi) (principal); Z51.81 Encounter for therapeutic drug level monitoring; Z79.899 Other long term (current) drug therapy | CPT/HCPCS: 99212 ==

== ENCOUNTER 2025-02-22 11:22 | Outpatient (REF) | payer MEDICARE, SELFPAY ==
[2025-02-22 12:45] LABS: MANUAL DIFF FLAG NO
[2025-02-22 13:12] LABS: Basophils Absolute Auto 0.1 X10*3/uL (0.0-0.2); Basophils Percent Auto 1.3 % (0-2); Eosinophils Absolute Auto 0.3 X10*3/uL (0.0-0.4); Eosinophils Percent Auto 4.2 % (0-4); Hematocrit 45.8 % (42.0-52.0); Hemoglobin 14.9 g/dl (14.0-18.0); Imm Gran Abs Auto 0.02 X10*3/uL (0.00-0.03); Imm Gran Pct Auto 0.3 % (0.0-0.4); Lymphocytes Absolute Auto 1.3 X10*3/uL (1.2-4.9); Lymphocytes Percent Auto 16.7 % (20-40); Mean Corpuscular HGB Conc 32.5 g/dl (31.0-36.0); Mean Corpuscular Hemoglobin 29.7 pg (27.0-33.0); Mean Corpuscular Volume 91.2 fL (80.0-98.0); Mean Platelet Volume 11.2 fL (9.4-12.4); Monocytes Absolute Auto 0.9 X10*3/uL (0.1-1.2); Monocytes Percent Auto 11.5 % (2-11); Neutrophils Absolute Auto 5.2 x10*3/uL (2.0-8.3); Platelet Count 238 X10*3/uL (160-400); Red Blood Count 5.02 X10*6/uL (4.60-5.80); Red Cell Distribution Width 12.7 % (11.0-16.0); White Blood Count 7.8 X10*3/uL (4.8-10.8)
[2025-02-22 13:27] LABS: Alanine Aminotransferase 16 U/L (0-40); Albumin Level 4.4 g/dL (3.5-5.0); Alkaline Phosphatase 80 U/L (39-117); Anion Gap 12 (12-20); Aspartate Amino Transferase 23 U/L (5-37); Bilirubin Total 0.8 mg/dL (0.0-1.0); Blood Urea Nitrogen 24 mg/dL (9-16); Calcium 9.6 mg/dL (8.4-10.2); Carbon Dioxide 31 mmol/L (22-29); Chloride 104 mmol/L (96-108); Estimated Glomerular Filt Rate > 60; Glucose Random 126 mg/dL (60-115); Potassium 4.1 mmol/L (3.3-5.1); Sodium 143 mmol/L (135-145); Total Protein 7.4 g/dL (6.5-8.0); Uric Acid 5.9 mg/dL (3.4-7.0)
--- OUTSIDE RECORDS SUMMARY | 2025-02-22 13:34 | XMS_ITS | Clinical Summary ---
Author Organization [facility] Address [address] [place] [address] Care Team Providers Care Wood Mill Supervisor Name Role Phone Norma Reyes MD Primary Care Provider [phone] Allergies Active Allergy Reactions Criticality Noted Date Comments Sulfa Antibiotics GI Intolerance/Nausea/Vomiting Low 10/22/2020 Medications atenolol (TENORMIN) 50 MG tablet Take 1 tablet (50 mg total) by mouth daily. 3 Active pravastatin (PRAVACHOL) 10 MG tablet Take 1 tablet (10 mg total) by mouth daily. 3 Active naproxen sodium (ALEVE) 220 mg tablet Take 1 tablet (220 mg total) by mouth 2 (two) times a day with meals. Take with meals or food to reduce stomach upset. Active Ascorbic Acid (vitamin C) 1000 MG tablet Take 1 tablet (1,000 mg total) by mouth daily. Active febuxostat (ULORIC) 40 MG tabletIndications:T ophaceous gout,Primary osteoarthritis of both hands,High risk medication use,Psoriasis,Infla mmatory arthropathy Take 1 tablet (40 mg total) by mouth daily. 90 tablet 1 4 Active predniSONE (DELTASONE) 10 MG tabletIndications:T ophaceous gout,Primary osteoarthritis of both hands,High risk medication use,Psoriasis,Infla mmatory arthropathy Take 40 mg (= 4 tablets) by mouth daily for 3 days, then 30 mg (= 3 tablets) daily for 3 days, then 20 mg (= 2 tablets) daily for 3 days, then 10 mg (= 1 tablet) daily for 3 days. Take with food. 30 tablet 4 Active Active Problems Problem Noted Date Diagnosed [...] Assigned at Male 08/03/2023 3:49 PM EST Legal Sex Male 6:49 PM EST Gender Identity Male 08/03/2023 3:49 [...] Abdominal Aortic Aneurysm (A AA) Screening 2014 COVID-19 Vaccine ( - 2023-2 5 season) 2024 RSV Vaccine 60 years and old er and Patients (1 - 1-dose 75+ series) 2024 Influenza Vaccine 04/20/2025 Hepatitis B Vaccines Aged Out No long er eligible based on patient's age to complete this topic Insurance MEDICARE PART A & [place] Care Teams Wood Mill Supervisor Relationship Specialty Start Date End Date Norma Reyes MD [address] [place] [address] [place] [address] PCP - General Internal Medicine 08/03/23
[2025-02-22 14:00] LABS: Erythrocyte Sedimentation Rate 9 MM/HR (0-15)
== END 2025-02-22 11:23 | disposition home or self-care (01) ==
LOC: HO.10HDL 11:22
PROVIDERS: Visit Provider Student in an Organized Health Care Education/Training Program
DX: M1A.9XX1 Chronic gout, unspecified, with tophus (tophi) (principal)
CPT/HCPCS: 36415; 80053; 84550; 85025; 85652; 86140

== ENCOUNTER 2025-04-25 07:18 | Outpatient (REF) | payer MEDICARE, SELFPAY ==
--- OUTSIDE RECORDS SUMMARY | 2025-04-25 07:20 | XMS_ITS | Clinical Summary ---
Author Organization [facility] Address [address] [place] [address] Care Team Providers Care Automotive Fuel Injection Servicer Name Role Phone Norma Reyes MD Primary Care Provider [phone] Allergies Active Allergy Reactions Criticality Noted Date [...] topic Insurance MEDICARE PART A & B [facility] Care Teams Automotive Fuel Injection Servicer Relationship Specialty Start Date End Date Norma Reyes MD [address] [place] [address] [place] [id number] PCP - General Internal Medicine 08/03/23
--- OUTSIDE RECORDS SUMMARY | 2025-04-25 07:20 | XMS_ITS ---
Author Name [facility] Organization Unknown History of Medication Use Medication Directions Dispensed Refills Start Date End Date Stat us pravastatin (PRAVACHOL) 10 MG tablet Take 1 tablet (10 mg total) by mouth daily. 07/04/2023 active atenolol (TENORMIN) 50 MG tablet Take 1 tablet (50 mg total) by mouth daily. 05/31/2023 active Allergies Allergen Reaction Severity Comment Documented Date Source Statu s SULFA ANTIBIOTICS GI INTOLERANCE/NAUSEA/V OMITING 10/22/2020 [facility] active Encounters Encounter Type Encounter Reason Primary Diagnosis Location Date Ambulatory Chronic gout, unspecified, with tophus (tophi) Chronic gout, unspecified, with tophus (tophi) [facility] 04/18/2024 Ambulatory [facility] 09/22/2023 Ambulatory Chronic gout, unspecified, with tophus (tophi) Chronic gout, unspecified, with tophus (tophi) [facility] 09/21/2023 Ambulatory Pain in unspecified joint Pain in unspecified joint [facility] 08/16/2023 Care Team Organization Name Specialty Phone Email Start Date End Da te [facility] 10/10/2023 [facility] 08/16/2023 12/06/2024 [facility] 08/16/2023 08/16/2023
[2025-04-25 11:15] LABS: MANUAL DIFF FLAG NO
[2025-04-25 11:31] LABS: Hematocrit 47.6 % (42.0-52.0); Hemoglobin 15.9 g/dl (14.0-18.0); Imm Gran Abs Auto 0.03 X10*3/uL (0.00-0.03); Imm Gran Pct Auto 0.5 % (0.0-0.4); Lymphocytes Absolute Auto 1.6 X10*3/uL (1.2-4.9); Mean Corpuscular HGB Conc 33.4 g/dl (31.0-36.0); Mean Corpuscular Hemoglobin 30.2 pg (27.0-33.0); Mean Corpuscular Volume 90.5 fL (80.0-98.0); NRBC Abs Auto 0.000 X10*3/uL (0.0-0.012); NRBC Pct Auto 0.0 /100WBC (0.0-0.2); Platelet Count 196 X10*3/uL (160-400); Red Blood Count 5.26 X10*6/uL (4.60-5.80); White Blood Count 6.6 X10*3/uL (4.8-10.8)
[2025-04-25 11:35] LABS: Hemoglobin A1C 159.6975 umol/L; Total Hemoglobin (HGBA1C) 4139.3637 umol/L
[2025-04-25 12:07] LABS: PSA,Total (Free>4and<10) 5.88 ng/mL (0.00-4.00)
[2025-04-25 12:08] LABS: Alanine Aminotransferase 17 U/L (0-40); Albumin Level 4.5 g/dL (3.5-5.0); Alkaline Phosphatase 74 U/L (39-117); Anion Gap 12 (12-20); Aspartate Amino Transferase 26 U/L (5-37); Blood Urea Nitrogen 19 mg/dL (9-16); Calcium 9.2 mg/dL (8.4-10.2); Carbon Dioxide 32 mmol/L (22-29); Chloride 104 mmol/L (96-108); Cholesterol 205 mg/dL (<200); Estimated Glomerular Filt Rate > 60; HDL Cholesterol 49 mg/dL (>40); Potassium 5.1 mmol/L (3.3-5.1); Sodium 143 mmol/L (135-145); Total Protein 7.3 g/dL (6.5-8.0); Triglycerides 101 mg/dL (<150); Uric Acid 5.4 mg/dL (3.4-7.0)
[2025-04-25 12:24] LABS: Folate 8.2 ng/mL (> or = 4.0); Vitamin B12 320 pg/mL (200-900)
[2025-04-25 12:35] LABS: Free T4 (Free Thyroxine) 1.05 ng/dL (0.71-1.85); Thyroid Stimulating Hormone 3.12 uIU/mL (0.32-4.0)
[2025-04-26 11:44] LABS: Free Prostate Spec Ag 1.6 ng/mL; Percent Free Prostate Spec Ag 30 % (calc) (>25)
== END 2025-04-25 07:19 | disposition home or self-care (01) ==
LOC: HO.10HDL 07:18
PROVIDERS: Internal Medicine; Visit Provider Urology
DX: Z12.5 Encounter for screening for malignant neoplasm of prostate (principal); R97.20 Elevated prostate specific antigen [PSA]; M1A.49X1 Other secondary chronic gout, multiple sites, with tophus (tophi); R73.9 Hyperglycemia, unspecified; E78.00 Pure hypercholesterolemia, unspecified
CPT/HCPCS: 36415; 80053; 80061; 82607; 82746; 83036; 84153; 84154; 84439; 84443; 84550; 85025

== ENCOUNTER 2025-05-03 10:04 | Outpatient (AMB) | payer MEDICARE, SELFPAY ==
--- NOTE | 2025-05-03 10:18 | A.OFFVIS_ITS ---
Intake Vital Signs 05/03/25 10:20 Height 6 ft Weight 244 lb 4 oz BMI 33.1 BP 150/70 H Blood Pressure Location Lt brachial Position Sitting Pulse 49 L Pulse Source Pulse Oximeter Temp 97.3 F Temp Source Temporal Artery Scan Pulse Oximetry (%) 94 Oxygen Delivery Method Room Air Intake Visit Reasons: AWV Intake Note: Patient is here for an Annual Wellness Visit. Measurement Superintendent Required: No Chairman President And Chief Executive Officer: Chairman President And Chief Executive Officer offered & declined Accompanied by: Self / Same As Patient Allergies atorvastatin Allergy (Unknown, Verified 05/03/25 10:19) Unknown Sulfa (Sulfonamide Antibiotics) Allergy (Unknown, Verified 05/03/25 10:19) stomach upset sulfacetamide Allergy (Unknown, Verified 05/03/25 10:19) Unknown allopurinol Adverse Reaction (Intermediate, Verified 05/03/25 11:15) dry mouth Medication List - Last Reconciled 05/03/25 by Norma Reyes MD ascorbate calcium (vitamin C) 1 g PO DAILY atenolol 50 mg PO DAILY [Black Smart extract ] cholecalciferol (vitamin D3) 25 mcg PO DAILY febuxostat 80 mg PO DAILY [hinged knee brace As directed] naproxen 250 mg PO QAM PRN pravastatin 10 mg PO DAILY sildenafil 100 mg PO ONCE PRN 30 days HPI AWV HPI Details [place] [facility] Stone [employer] Helper Dr. Zaragoza, dermatology [facility], dentist Dr. Buitrago BP at home is good average 134/64 PFSH Medical History (Updated 05/03/25 @ 11:23 by Norma Reyes MD) Anxiety and depression Encounter for monitoring febuxostat therapy Footdrop Tinnitus Medicare annual wellness visit, initial Lumbar degenerative disc disease Left sided sciatica Swelling of left index finger Elevated PSA Thoracic outlet syndrome Vitamin D deficiency Osteoarthritis Obesity (BMI 30-39.9) Psoriasis Alcohol abuse Hypercholesterolemia Hypertension Surgical History H/O myringotomy Social History (Updated 05/03/25 @ 11:20 by Norma Reyes MD) Housing: House Alcohol intake: current Alcohol type: beer Comment: 2-3 drinks a week Patient Tobacco Use Status: Former Tobacco user Tobacco use type: Cigarette Years Smoked: stopped 1985 e-Cigarette/Vaping Use: Never Used Second Hand Smoke Exposure: No service: No Current occupational status: retired Current occupation: rt handed Cognitive needs: No Hearing needs: No Vision needs: No Questionnaire Medicare Wellness Checkup [age] What gender do you identify with?: male During the past 4 weeks, how much have you been bothered by emotional problems such as feeling anxious, depressed, irritable, sad or downhearted, and blue?: slightly During the past 4 weeks, has your physical & emotional health limited your social activities with family, friends, neighbors, or groups?: not at all During the past 4 weeks, how much bodily pain have you generally had?: very mild pain During the past 4 weeks, was someone available to help you if you needed & wanted help?: yes, as much as I wanted During the past 4 weeks, what was the hardest physical activity you could do for at least 2 minutes?: moderate Can you get to places out of walking distance without help? (For eg., can you travel alone on buses, taxis or drive your car?): Yes Can you go shopping for groceries or clothes without someone's help?: Yes Can you prepare your own meals?: Yes Can you do your housework without help?: Yes Because of any health problems, do you need the help of another person with your personal care needs such as eating, bathing, dressing or getting around the house?: No Can you handle your own money without help?: Yes During the past 4 weeks, how would you rate your health in general?: good During the past 4 weeks how have things been going for you?: good & bad parts about equal Are you having difficulties driving your car?: no Do you always fasten your seat belt when you are in a car?: yes, usually During past 4 weeks, have you been bothered by the following: never: Falling or dizzy when standing up, Trouble eating well?, Teeth or denture problems? and Problems using the telephone? and sometimes: Sexual problems? and Tiredness or fatigue? Have you fallen 2 or more times in the past year?: No Are you afraid of falling?: No Are you a smoker?: no During the past 4 weeks, how many drinks of wine, beer, or other alcoholic beverages did you have?: 2-5 drinks per week Do you exercise for about 20 minutes 3 or more times a week?: yes, all the time Have you been given information to help with the following?: no: Hazards in your house that might hurt you? and no: Keeping track of your medications? How often do you have trouble taking medicines the way you have been told to take them?: I always take medicine as prescribed How confident are you that you can control & manage most of your health problems?: somewhat confident What is your race?: White PHQ-9 Over the last 2 weeks, how often have you been bothered by any of the following problems? 1. Little interest or pleasure in doing things: not at all 2. Feeling down, depressed, or hopeless: not at all 3. Trouble falling or staying asleep, or sleeping too much: several days 4. Feeling tired or having little energy: several days 5. Poor appetite or overeating: not at all 6. Feeling bad about yourself - or that you are a failure or have let yourself or your family down: not at all 7. Trouble concentrating on things, such as reading the newspaper or watching television: not at all 8. Moving or speaking so slowly that other people could have noticed. Or the opposite - being so fidgety or restless that you have been moving around a lot more than usual: not at all 9. Thoughts that you would be better off or of hurting yourself in some way: not at all Total score: 2 Depression Screening Interpretation: Positive Depression Screening Done: Yes Source: Developed by Drs. Vj Casanova, Elvira Cobian, Wagner Anna and colleagues, with an educational tere from [employer]. Thrive Questionnaire Date Thrive assessed: 11/07/24 I am a: Patient What is your living situation today?: I have a steady place to live Within the past 12 months, did the food you bought not last and you didn't have the money to get more?: Never true Within the past 12 months, did you worry whether your food would run out before you got money to buy more?: Never true Do you have trouble paying for medicines?: No Do you have trouble getting transportation to medical appointments?: No Do you have trouble paying your heating and electricity bill?: No Do you have trouble taking care of your child, family member or friend?: No Do you have trouble with day-to-day activities such as bathing, preparing meals, shopping, managing finances, etc.?: No Are you currently unemployed and looking for a job?: No Are you interested in more education?: No Please select the resources that you would like help with: None Currently or been in a relationship where the following occur: No concerns reported THRIVE Score: 0 ANI-7 AMB Questionnaire ANI-7 Date ANI - 7 assessed: 05/03/25 Feeling nervous, anxious, or on edge: 0 = Not at all Not being able to stop or control worryin = Not at all Worrying too much about different things: 0 = Not at all Trouble relaxin = Not at all Being so restless that it is hard to sit still: 0 = Not at all Becoming easily annoyed or irritable: 0 = Not at all Feeling afraid as if something awful might happen: 0 = Not at all Total ANI-7 score (0-4 normal; 5-9 mild; 10-14 moderate; 15-21 severe): 0 Source: Developed by Drs. Vj Casanova, Elvira Cobian, Wagner Anna and colleagues, with an educational tere from [employer]. AUDIT C Alcohol Use Questionnaire (AUDIT-C) 1. How often do you have a drink containing alcohol?: 2-4 times a month 2. How many drinks containing alcohol do you have on a typical day when you are drinking?: 3 or 4 3. How often do you have six or more drinks on one occasion?: Never Total Score: 3 Review of Systems Const Denies poor appetite and Denies weakness Eyes Denies no additional complaints ENT Reports Normal hearing present, Denies dizziness, Denies nasal congestion, Denies tinnitus and Denies sore throat Card Denies chest pain, Denies syncope, Denies rapid heart rate and Denies dyspnea Resp Denies cough and Denies dyspnea GI Denies change in stool character, Reports constipation, Denies diarrhea, Denies nausea and Denies vomiting Denies dysuria and Denies urinary frequency Neuro Reports Normal hearing present, Denies confusion, Denies dizziness, Denies syncope and Denies weakness Psych Denies confusion Physical Exam Vital Signs: Last Vital Signs Temp 97.3 F 05/03/25 10:20 Pulse 49 L 05/03/25 10:20 BP 150/70 H 05/03/25 10:20 Pulse Ox 94 05/03/25 10:20 Oxygen Delivery Method Room Air 05/03/25 10:20 BMI result Body Mass Index 33.1 Const General: No confusion Orientation/consciousness: No confusion HEENT Head: Yes normocephalic Ears: external ears normal and TM's normal bilaterally Face and sinus: Yes normal facial exam Mouth: moist mucous membranes Throat: Yes tonsils normal Eyes Conjunctivae: conjunctivae normal Pupils: Equal, round and reactive pupils present and Pupil accommodation reflex normal Direct Ophthalmoscopy: normal light reflex Neck Neck: No lymphadenopathy Thyroid: Thyroid normal Chest Chest palpation & inspection: normal inspection of the chest Resp Effort & Inspection: normal respiratory effort and no audible wheezes Auscultation: clear to auscultation bilaterally, no crackles, no wheezes and lung sounds not diminished Cardio Rate: regular rate Rhythm: regular rhythm Peripheral pulses: radial pulses present and dorsalis pedis present GI Other: guaiac neg, prostate N Palpation (GI): no masses Auscultation: normal bowel sounds and normoactive bowel sounds Rectal Exam - Male: Yes deferred Male General Exam: Yes normal external exam Skin General skin exam: no rashes or lesions noted Rashes: no rashes Neuro General: No confusion Cranial nerves: Yes Equal, round and reactive pupils present and Yes Normal hearing present Cognition (Neuro): normal cognition Gait exam (Neuro): Normal gait present Motor exam (neuro): 5/5 motor strength present throughout Deep tendon reflexes (DTR's): Right brachioradialis reflex intensity grade: 2+, Left brachioradialis reflex intensity grade: 2+, Right patellar reflex intensity grade: 2+ and Left patellar reflex intensity grade: 2+ Extrem General: No edema Assessment & Plan Assessment & Plan (1) Medicare annual wellness visit, subsequent: Code(s): Z00.00 - Encounter for general adult medical examination without abnormal findings Plan: Patient is advised to eat healthy, keep well hydrated, keep active and have adequate sleep. (2) Psoriasis: Code(s): L40.9 - Psoriasis, unspecified Plan: Continue follow-up with Dermatology (3) Tophaceous gout: Comment: dx 08/2023 Febuxostat started 08/2023 effective Code(s): M1A.9XX1 - Chronic gout, unspecified, with tophus (tophi) Plan: Keep well hydrated continue with present medication, low purine diet (4) Obesity (BMI 30-39.9): Code(s): E66.9 - Obesity, unspecified Plan: Diet and exercise (5) Hypertension: Code(s): I10 - Essential (primary) hypertension Plan: Continue with blood pressure medication. Decrease salt intake and exercise on atenolol 50 mg once a day (6) Hypercholesterolemia: Code(s): E78.00 - Pure hypercholesterolemia, unspecified Plan: Avoid fried foods, chicken skin, eggs, butter margarine, pastries and meat. Be it pork or beef they have a lot of cholesterol LDL goal of less than 130 and triglyceride of less than 150 on pravastatin 10 mg once a day (7) Generalized anxiety disorder: Code(s): F41.1 - Generalized anxiety disorder (8) Left shoulder pain: Code(s): M25.512 - Pain in left shoulder Plan History of Present Illness The patient is a 74-year-old male presenting for an annual wellness visit and management of chronic conditions. He has a history of hypertension, which is monitored regularly, and he reports checking his blood pressure at home with generally good averages despite occasional high readings in the clinic. His hypercholesterolemia is managed with medication, and recent lab results show an LDL cholesterol level of 136 mg/dL, slightly above the desired range. The patient has a history of psoriasis and generalized anxiety disorder, both of which are managed with ongoing care. He also has lumbar degenerative disc disease, which contributes to chronic back pain. He reports erectile dysfunction, which has been a long-standing issue, and is currently managed with sildenafil as needed. The patient is aware of the potential impact of atenolol on erectile function and has discussed alternative medications with his urologist. The patient has a right foot drop and has been referred to podiatry for a custom orthotic to assist with mobility. His prostate-specific antigen (PSA) levels have been elevated, with the most recent reading at 5.88, and he is under regular surveillance by his urologist. He has experienced an allergic reaction to allopurinol, which caused dry mouth, and has since been switched to febuxostat for gout management. 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 Health Maintenance - Vaccinations: Up to date with pneumonia, tetanus, and shingles vaccines - Screening: Last colonoscopy in 2016, PSA levels monitored regularly - Lifestyle: Engages in regular exercise including tennis and yoga - Diet: Monitors sugar intake due to slightly elevated fasting glucose levels - Substance Use: Reduced alcohol consumption, no tobacco use Social History - Exercise: Regularly plays tennis and participates in yoga classes - Alcohol Use: Consumes alcohol infrequently, approximately two to three drinks per week - Tobacco Use: No current tobacco use Review of Systems - Cardiovascular: Denies chest pain, reports occasional palpitations - Respiratory: Denies dyspnea, cough, or wheezing - Gastrointestinal: Denies nausea, vomiting, diarrhea, or constipation - Genitourinary: Reports erectile dysfunction, denies urinary frequency or urgency - Musculoskeletal: Reports knee pain and clicking, denies joint swelling - Neurological: Denies dizziness or syncope - Dermatological: Reports psoriasis Physical Exam General: Cooperative, healthy appearing, comfortable, no acute distress and well developed Orientation: Patient oriented x3 Limitations: Right foot drop Head: Normal to inspection Ears: Hearing loss at certain frequencies, advised against hearing aids due to minimal improvement Nose: Normal external nose present Face and sinus: Normal facial exam, patient reports sinus pressure Eyes: Appearance normal, both eyes and all related structures, reports floaters Neck: Normal visual inspection and Yes full ROM Respiratory: Normal respiratory effort and able to speak in complete sentences. Clear to auscultation bilaterally Cardiovascular: Regular rate and rhythm with extra beats noted (PVCs), normal S1 and S2 GI: Normal to inspection. Soft to palpation and nontender Skin: No rashes or lesions noted, history of psoriasis Neuro: Patient oriented x3 Extremities: Normal to inspection, reports knee clicking and arthritis, uses braces and orthotics for support Results - Labs: Normal blood count, normal electrolytes, renal function good, fasting glucose 107 mg/dL, hemoglobin A1c 5.7%, uric acid 5.4 mg/dL, LDL cholesterol 136 mg/dL, PSA 5.88 ng/mL Plan The patient will continue with current antihypertensive therapy, with regular monitoring of blood pressure at home to ensure control. His hypercholesterolemia management will continue with current statin therapy, and dietary modifications will be reinforced to help lower LDL levels. For erectile dysfunction, the patient will continue using sildenafil as needed, and discussions regarding potential changes in beta-afia therapy will be revi sited with his urologist. The patient is advised to maintain regular follow-ups with urology for monitoring of PSA levels and prostate health. The patient will continue using custom orthotics for right foot drop and engage in physical therapy exercises to improve mobility. Management of knee discomfort due to uric acid crystallization will include continued use of febuxostat and regular exercise to maintain joint function. Preventative care measures include ensuring vaccinations are up to date, with recommendations for flu and COVID-19 vaccinations in the fall. The patient is encouraged to maintain a healthy lifestyle with regular exercise and a balanced diet to manage weight and overall health. Patient was informed and verbally consented to the use of an ambient scribe for clinic note documentation during this visit. Discussion Notes During the visit, we discussed the management of hypertension and hypercholesterolemia, emphasizing the importance of medication adherence and lifestyle modifications. We also reviewed the patient's erectile dysfunction treatment with sildenafil and considered the potential impact of atenolol, suggesting a discussion with his urologist about alternative medications. The patient was informed about the elevated PSA levels and the need for regular monitoring with his urologist. We discussed the use of custom orthotics for right foot drop and the importance of physical therapy exercises. Preventative care measures were highlighted, including the need for flu and COVID-19 vaccinations in the fall, and the patient was encouraged to maintain a healthy lifestyle with regular exercise and a balanced diet. Patient Instructions - Continue taking your blood pressure medication as prescribed and monitor your blood pressure at home regularly. - Maintain your current cholesterol medication and follow a heart-healthy diet to help lower LDL levels. - Use sildenafil as needed for erectile dysfunction and discuss any concerns with your urologist. - Follow up with your urologist for PSA monitoring and prostate health. - Use your custom orthotics and continue physical therapy exercises for your right foot drop. - Keep up with regular exercise and a balanced diet to support joint health and overall well-being. - Ensure your vaccinations are up to date, including flu and COVID-19 shots in the fall. Quality Reporting (2019) Depression/Bipolar (159/160/161/177) PHQ-9: Total score: 2 Coding Level of Care Code Medicare Subsequent (G0439) Diagnoses Medicare annual wellness visit, subsequent Z00.00 Psoriasis L40.9 Tophaceous gout M1A.9XX1 Obesity (BMI 30-39.9) E66.9 Hypertension I10 Hypercholesterolemia E78.00 Generalized anxiety disorder F41.1 Left shoulder pain M25.512
[2025-05-03 10:20] VITALS: BP 150/70; PULSE 49; TEMP 36.3; O2SAT 94; BMI 33.1
--- OUTSIDE RECORDS SUMMARY | 2025-05-03 10:45 | XMS_ITS | Clinical Summary ---
Author Organization [facility] Address [address] [place] [address] Care Team Providers Care Piano Tuner Name Role Phone Norma Reyes MD Primary Care Provider [phone] Allergies Active Allergy Reactions Criticality Noted Date [...] Zoster (Shingles) Vaccine (1 of 2) 11/20/1999 COVID-19 Vaccine ( - 2023-2 5 season) 2024 RSV Vaccine 60 years and old er and Patients (1 - 1-dose 75+ series) 2024 Influenza Vaccine 04/20/2025 Hepatitis B Vaccines Aged Out No long er eligible based on patient's age to complete this topic Insurance MEDICARE PART A & B [facility] Care Teams Piano Tuner Relationship Specialty Start Date End Date Norma Reyes MD [address] [place] [address] [place] [id number] PCP - General Internal Medicine 08/03/23
== END 2025-05-03 11:40 | disposition home or self-care (01) ==
PROVIDERS: PCP Internal Medicine; Visit Provider Internal Medicine
DX: Z00.00 Encounter for general adult medical examination without abnormal findings (principal); L40.9 Psoriasis, unspecified; E66.9 Obesity, unspecified; Z68.33 Body mass index [BMI] 33.0-33.9, adult; M1A.9XX1 Chronic gout, unspecified, with tophus (tophi); I10 Essential (primary) hypertension; E78.00 Pure hypercholesterolemia, unspecified; F41.1 Generalized anxiety disorder; M25.512 Pain in left shoulder

== ENCOUNTER 2025-05-25 09:14 | Outpatient (AMB) | payer MEDICARE, SELFPAY ==
--- NOTE | 2025-05-25 09:29 | MHC.OFFVIS ---
Intake Visit Reasons: 1y/PSA Intake Note: Patient is Present for: 1yr follow up Urology Medication:sildenafil Blood Thinners: None labs done 04/25/25: fr-psa 1.6, % fr-psa 30, t-psa 5.3 Motor Coach Bus Driver Required: No Accompanied by: Self / Same As Patient Allergies atorvastatin Allergy (Unknown, Verified 05/25/25 09:31) Unknown Sulfa (Sulfonamide Antibiotics) Allergy (Unknown, Verified 05/25/25 09:31) stomach upset sulfacetamide Allergy (Unknown, Verified 05/25/25 09:31) Unknown allopurinol Adverse Reaction (Intermediate, Verified 05/25/25 09:31) dry mouth HPI Comments Details: Franck BROWN is a very pleasant male. He is a patient of Dr Reyes. He is seen for the following urologic conditions. - elevated PSA PSA remained stable and mildly elevated Previously given sildenafil for erections Happy with current urination Refill sildenafil and needed Discussed protective benefit of high free PSA Elevated PSA/Abnormal KRISTY:? He presents for ?further evaluation of elevated PSA ?- remains stable at followup - noctruria x2, effective emptying ? Current management is?no medication ? Laboratory investigations include?a total PSA evaluation ?12/05 5.2, 10/08 3.5, 11/09 5.1 20%, 04/08 PSA 4.0 24%, 05/10 3.8, 05/11 4.4 30%. 05/12 4.1 30%, 05/13 5.1 31% PCPT <5% High Risk, 05/14 5.3 30% ? Indiviudalized Prostate Cancer Risk Calculator?5-10% high risk, Would like to continue with observation and understands and accepts the risks of a possible delay in diagnosis.? A TRUS biopsy? has ?been performed and is negative 2011 ? Symptoms include?04/06 , incomplete emptying, weak stream, and are stable.? Overall symptoms are?mild.? Associated conditions? erectile dysfunction ?Yes ? Therapeutic plan will be?continued surveillance [facility] Medical History (Updated 05/03/25 @ 11:23 by Norma Reyes MD) Anxiety and depression Encounter for monitoring febuxostat therapy Footdrop Tinnitus Medicare annual wellness visit, initial Lumbar degenerative disc disease Left sided sciatica Swelling of left index finger Elevated PSA Thoracic outlet syndrome Vitamin D deficiency Osteoarthritis Obesity (BMI 30-39.9) Psoriasis Alcohol abuse Hypercholesterolemia Hypertension Surgical History H/O myringotomy Social History (Updated 05/03/25 @ 11:20 by Norma Reyes MD) Housing: House Alcohol intake: current Alcohol type: beer Comment: 2-3 drinks a week Patient Tobacco Use Status: Former Tobacco user Tobacco use type: Cigarette Years Smoked: stopped 1984 e-Cigarette/Vaping Use: Never Used Second Hand Smoke Exposure: No service: No Current occupational status: retired Current occupation: rt handed Cognitive needs: No Hearing needs: No Vision needs: No Review of Systems Const Denies chills and Denies fever(s) Card Reports no additional complaints and Denies syncope Resp Denies cough GI Denies abdominal pain and Denies heartburn Reports as per HPI and Denies change in libido Neuro Denies syncope Psych Denies change in libido Endo Denies change in libido Physical Exam Const General: cooperative, healthy appearing, comfortable and no acute distress Orientation/consciousness: patient oriented x3 HEENT Face and sinus: Yes normal facial exam Mouth: moist mucous membranes Neck Neck: Yes normal visual inspection, Yes full ROM and Yes trachea midline Chest Chest palpation & inspection: normal inspection of the chest Resp Effort & Inspection: normal respiratory effort, able to speak in complete sentences and no respiratory distress GI Inspection: Yes normal to inspection Back/Spine/Pelvis Cervical Spine: normal cervical lordosis Thoracic/Lumbar Spine: thoracic and lumbar spine normal to inspection Skin General skin exam: no rashes or lesions noted Neuro General: patient oriented x3, gait normal, tone normal and moves all extremities Extrem General: Yes normal to inspection and Yes capillary refill normal Assessment & Plan Assessment & Plan (1) Erectile dysfunction: Code(s): N52.9 - Male erectile dysfunction, unspecified Category: Medical (2) Elevated PSA: Code(s): R97.20 - Elevated prostate specific antigen [PSA] Category: Medical Plan Twelve month follow-up Orders: Orders PSA,Total (Free>4and<10) 12 Months N52.9 - Male erectile dysfunction, unspecified Patient Instructions: This note is constructed using voice recognition software. While every effort has been made to ensure accuracy valuer errors may have been included. Imaging studies, laboratory and physical exam results were discussed and reviewed in detail. No major barriers to patient understanding were identified. An opportunity to ask questions regarding the treatment plan was provided. All questions were answered. The patient expressed understanding and agreement with the above treatment plan. The patient is aware they should contact our office by phone for worsening of their current condition or the appearance of new urologic symptoms. Compliance is encouraged with any medications and followup testing that is ordered. It is a privilege to participate in the urologic care of your patient. If you have any questions or concerns regarding treatment for the above conditions, or other urologic issues, please do not hesitate to contact me. The office telephone contact is [phone]. Sincerely, Dr Bakari Esteban MD, [facility] - Urology Compassionate Specialist Care for the Genitourinary System Coding Level of Care Code Est Pt Level 4 (64739) Diagnoses Erectile dysfunction N52.9 Elevated PSA R97.20
--- OUTSIDE RECORDS SUMMARY | 2025-05-25 09:59 | XMS_ITS | Clinical Summary ---
Author Organization [facility] Address [address] [place] [address] Care Team Providers Care Harness Builder Name Role Phone Norma Reyes MD Primary Care Provider [phone] Allergies Active Allergy Reactions Criticality Noted Date [...] Health Maintenance Due Date Last Done Comments Advance Care Planning 1950 Hepatitis C Virus Screening 1950 DTaP/Tdap/Td Vaccines (1 - Tdap) 1968 Colonoscopy 1994 Pneumococcal Vaccines 50+ (1 of 1 - PCV) 11/20/1999 Zoster (Shingles) Vaccine (1 of 2) 11/20/1999 COVID-19 Vaccine (1 - 2023-2 5 season) 2024 RSV Vaccine 60 years and old er and Patients (1 - 1-dose 75+ series) 2024 Influenza Vaccine 04/20/2025 Hepatitis B Vaccines Aged Out No long er eligible based on patient's age to complete this topic Insurance MEDICARE PART A & B [facility] Care Teams Harness Builder Relationship Specialty Start Date End Date Norma Reyes MD [address] [place] [address] [place] [address] PCP - General Internal Medicine 08/03/23
--- OUTSIDE RECORDS SUMMARY | 2025-05-25 09:59 | XMS_ITS | Encounter Summary ---
Author Organization [facility] Address [address] [place] [address] Care Team Providers Care Mechanical Development Engineer Name Role Phone Norma Reyes MD Primary Care Provider [phone] Encounter Details Date Type Department Care Team (Late st Contact Info) Description 09/24/2023 Scanned Document [facility] Rheumatology [address] [phone] Rheumatology, Scan Social History Tobacco Use Types [...] on filedocumented in this encounter Care Teams Mechanical Development Engineer Relationship Specialty Start Date End Date Norma Reyes MD [address] [place] [address] [place] [address] PCP - General Internal Medicine 08/03/23 documented as of this encounter
== END 2025-05-25 10:06 | disposition home or self-care (01) ==
LOC: HO.HUSH 09:15
PROVIDERS: PCP Internal Medicine; Visit Provider Urology
DX: N52.9 Male erectile dysfunction, unspecified (principal); R97.20 Elevated prostate specific antigen [PSA]
CPT/HCPCS: 99214

== ENCOUNTER → 2025-05-25 09:14 | Outpatient (BNVA) | payer MEDICARE, SELFPAY | PROVIDERS: PCP Internal Medicine; Visit Provider Urology | DX: N52.9 Male erectile dysfunction, unspecified (principal); R97.20 Elevated prostate specific antigen [PSA] | CPT/HCPCS: 99212 ==

== ENCOUNTER 2025-05-25 10:22 | Outpatient (REF) | payer MEDICARE, SELFPAY ==
[2025-05-25 13:00] LABS: MANUAL DIFF FLAG NO
[2025-05-25 13:03] LABS: Hematocrit 45.0 % (42.0-52.0); Hemoglobin 15.1 g/dl (14.0-18.0); Imm Gran Abs Auto 0.02 X10*3/uL (0.00-0.03); Imm Gran Pct Auto 0.2 % (0.0-0.4); Lymphocytes Absolute Auto 1.7 X10*3/uL (1.2-4.9); Mean Corpuscular HGB Conc 33.6 g/dl (31.0-36.0); Mean Corpuscular Hemoglobin 30.1 pg (27.0-33.0); Mean Corpuscular Volume 89.6 fL (80.0-98.0); NRBC Abs Auto 0.000 X10*3/uL (0.0-0.012); NRBC Pct Auto 0.0 /100WBC (0.0-0.2); Platelet Count 202 X10*3/uL (160-400); Red Blood Count 5.02 X10*6/uL (4.60-5.80); White Blood Count 8.1 X10*3/uL (4.8-10.8)
[2025-05-25 13:15] LABS: Alanine Aminotransferase 20 U/L (0-40); Albumin Level 4.4 g/dL (3.5-5.0); Alkaline Phosphatase 72 U/L (39-117); Anion Gap 11 (12-20); Aspartate Amino Transferase 26 U/L (5-37); Blood Urea Nitrogen 20 mg/dL (9-16); Calcium 9.0 mg/dL (8.4-10.2); Carbon Dioxide 31 mmol/L (22-29); Chloride 103 mmol/L (96-108); Estimated Glomerular Filt Rate > 60; Potassium 4.9 mmol/L (3.3-5.1); Sodium 140 mmol/L (135-145); Total Protein 7.1 g/dL (6.5-8.0)
[2025-05-25 13:21] LABS: Uric Acid 3.8 mg/dL (3.4-7.0)
== END 2025-05-25 10:23 | disposition home or self-care (01) ==
LOC: HO.10HDL 10:22
PROVIDERS: Visit Provider Student in an Organized Health Care Education/Training Program
DX: M1A.9XX1 Chronic gout, unspecified, with tophus (tophi) (principal); Z79.899 Other long term (current) drug therapy
CPT/HCPCS: 36415; 80053; 84550; 85025; 85652; 86140

== ENCOUNTER 2025-06-14 12:46 | Outpatient (AMB) | payer MEDICARE, SELFPAY ==
--- NOTE | 2025-06-14 13:14 | A.OFFVIS_ITS ---
Vital Signs 06/14/25 13:18 Height 6 ft Weight 248 lb 0.321 oz BMI 33.6 BP 152/80 H Blood Pressure Location Lt brachial Position Sitting Pulse 56 Pulse Source Pulse Oximeter Pulse Oximetry (%) 98 Oxygen Delivery Method Room Air Intake Visit Reasons: gout Intake Note: Patient presents for Gout follow up. Allergies atorvastatin Allergy (Unknown, Verified 06/14/25 13:18) Unknown Sulfa (Sulfonamide Antibiotics) Allergy (Unknown, Verified 06/14/25 13:18) stomach upset sulfacetamide Allergy (Unknown, Verified 06/14/25 13:18) Unknown allopurinol Adverse Reaction (Intermediate, Verified 06/14/25 13:18) dry mouth HPI Comments Details: Patient is a 74-year-old male with hyperlipidemia, generalized anxiety disorder, psoriasis, hypertension and chronic tophaceous gout here today for follow up Interval History: Patient last seen 11/08/24 with al - On Febuxostat 80mg daily - Has not had any gout flare since that visit - Febuxostat not covered by his insurance and so he was switched to allopurinol however patient was told that he should not take allopurinol due to his age - try to switch to allopurinol but had worsening symptoms and so was switched back to febuxostat Today - On Febuxostat 80mg daily - Doing well - Complaining of bilateral knee pain - still is very active and gets a knee brace from orthotics but is interested in other therapeutic interventions Rheumatologic History: Diagnosed with gout 08/2023 - allopurinol caused side effects - on febuxostat Current Rheumatology Medication(s): Febuxostat 80 mg daily [facility] Medical History (Updated 06/14/25 @ 13:56 by Aury Mason MD) Anxiety and depression Encounter for monitoring febuxostat therapy Footdrop Tinnitus Medicare annual wellness visit, initial Lumbar degenerative disc disease Left sided sciatica Swelling of left index finger Elevated PSA Thoracic outlet syndrome Vitamin D deficiency Osteoarthritis Obesity (BMI 30-39.9) Psoriasis Alcohol abuse Hypercholesterolemia Hypertension Surgical History H/O myringotomy Social History Housing: House Alcohol intake: current Alcohol type: beer Comment: 2-3 drinks a week Patient Tobacco Use Status: Former Tobacco user Tobacco use type: Cigarette Years Smoked: stopped 1984 e-Cigarette/Vaping Use: Never Used Second Hand Smoke Exposure: No service: No Current occupational status: retired Current occupation: rt handed Cognitive needs: No Hearing needs: No Vision needs: No Review of Systems Const Details: Review of Systems Constitutional: Denies fever, chills, weight loss ENT: Denies vision changes, eye pain or eye redness, dental caries, dry mouth GI: Denies nausea, vomiting, diarrhea, abdominal pain, change in BM Pulm: Denies SOB, BYRNE, hemoptysis, wheezing Cards: Denies chest pain, palpitations Skin: Denies Raynaud's, rash, nail changes, photosensitivity, MANAGER OF [employer] SAL[employer]: Denies headaches, weakness, paresthesias, recurrent falls MSK: as per HPI All other systems reviewed and are unremarkable except noted above Physical Exam Exam Exam: Vital signs reviewed Physical Examination CONSTITUITIONAL Patient alert and cooperative. Well appearing and in no apparent painful distress MSK Hands * Right Hand: Able to make a fist. No swelling or tenderness to palpation of the MCPs, PIPs or DIPs. * Left Hand: Able to make a fist. No swelling or tenderness to palpation of the MCPs, PIPs or DIPs. * Herbedens and Bouchards nodes noted bilaterally * Squaring of the 1st CMC bilaterally Wrists * Right Wrist: Full ROM to flexion and extension. No swelling or TTP * Left Wrist: Full ROM to flexion and extension. No swelling or TTP Elbows * Right Elbow: Full ROM. No swelling or TTP. No TTP of the medial epicondyle. No TTP of the lateral epicondyle * Left Elbow: Full ROM. No swelling or TTP. No TTP of the medial epicondyle. No TTP of the lateral epicondyle * Large tophi noted on elbow bilaterally Shoulders * Right shoulder: Full ROM. No swelling noted. No TTP of the AC joint. No TTP of the subacromial bursa. No TTP of the posterior shoulder * Left shoulder: Full ROM. No swelling noted. No TTP of the AC joint. No TTP of the subacromial bursa. No TTP of the posterior shoulder Knees * Right knee: Decreased ROM. Swelling noted. No TTP of the knee joint line. No TTP of pes anserine bursa * Left knee: Decreased ROM. Swelling noted. No TTP of the knee joint line. No TTP of pes anserine bursa. * Crepitations felt bilaterally Ankles * Right ankle: Good ankle dorsiflexion and plantar flexion. No swelling. No TTP of the ankle joint * Left ankle: Good ankle dorsiflexion and plantar flexion. No swelling. No TTP of the ankle joint Feet * Right foot: Negative squeeze test * Left foot: Negative squeeze test Tender points? * No tenderness to palpation of the bilateral trapezius, supraspinatus, anterior costochondral junctions, bilateral suboccipital muscle insertions SKIN PsO rashes noted to extensor surface of elbows and upper right arm Rosacea noted to face Vital Signs: Last Vital Signs Pulse 56 06/14/25 13:18 BP 152/80 H 06/14/25 13:18 Pulse Ox 98 06/14/25 13:18 Oxygen Delivery Method Room Air 06/14/25 13:18 BMI result Body Mass Index 33.6 Results Reviewed Results Reviewed: Laboratory Tests 04/25/25 05/25/25 07:20 10:25 WBC 8.1 RBC 5.02 Hgb 15.1 Hct 45.0 Plt Count 202 ESR 7 Sodium 140 Potassium 4.9 Chloride 103 Carbon Dioxide 31 H BUN 20 H Creatinine 0.84 Uric Acid 5.4 3.8 AST 26 ALT 20 C-Reactive Protein 0.54 H Assessment & Plan Assessment & Plan (1) Tophaceous gout: Comment: dx 08/2023 Febuxostat started 08/2023 effective Allopurinol Code(s): M1A.9XX1 - Chronic gout, unspecified, with tophus (tophi) Category: Medical Plan: #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 Currently on febuxostat and tolerating medication well uric acid is at goal. Allopurinol trial failed, will continue with febuxostat Plan - Febuxostat 80mg daily - RTC 1 year - Labs before visit: CBC, CMP, ESR, CRP, UA (2) Bilateral primary osteoarthritis of knee: Code(s): M17.0 - Bilateral primary osteoarthritis of knee Plan: #Bilateral Knee OA Patient with bilateral knee osteoarthritis which is complicated by his gout. Interested in therapeutic interventions. I discussed both steroid and gel injections with the patient and it seems that patient is interested in the gel injections as the side effects of the steroid injections are not amenable to him. He will think about gel injections further and get back to us (3) Encounter for monitoring febuxostat therapy: Code(s): Z51.81 - Encounter for therapeutic drug level monitoring; Z79.899 - Other snf (current) drug therapy Category: Medical Plan: #Long-term Current Use of Febuxostat Risks and benefits of Feboxostat discussed with patient Benefits include decreased gout flares, remission of gout and reduction of tophi Discussed that febuxostat has a black box warning indicating an increased risk of from heart related causes and other causes. Other risks associated with this medication include heart arrhythmias, blurred vision, dizziness, shortness of breath, muscle pain and rash Plan I spent 30 minutes reviewing the record and labs, taking a history, examining the patient, discussing the treatment plan, contacting outside rheumatology and documenting in the medical record Coding Level of Care Code Est Pt Level 4 (72153) Complex EM visit Add On G2211 Diagnoses Tophaceous gout M1A.9XX1 Bilateral primary osteoarthritis of knee M17.0 Encounter for monitoring febuxostat therapy Z51.81; Z79.899
[2025-06-14 13:18] VITALS: BP 152/80; PULSE 56; O2SAT 98; BMI 33.6
--- OUTSIDE RECORDS SUMMARY | 2025-06-14 17:33 | XMS_ITS | Encounter Summary ---
Author Organization [facility] Address [address] [place] [address] Care Team Providers Care Ordnance Truck Installation Mechanic Name Role Phone Norma Reyes MD Primary Care Provider [phone] Encounter Details Date Type Department Care Team (Late st Contact Info) Description 09/24/2023 Scanned Document [facility] Rheumatology [address] [phone] Rheumatology, Scan Social History Tobacco Use Types [...] on filedocumented in this encounter Care Teams Ordnance Truck Installation Mechanic Relationship Specialty Start Date End Date Norma Reyes MD [address] [place] [address] [place] [address] PCP - General Internal Medicine 08/03/23 documented as of this encounter
--- OUTSIDE RECORDS SUMMARY | 2025-06-14 17:33 | XMS_ITS | Clinical Summary ---
Author Organization [facility] Address [address] [place] [address] Care Team Providers Care Public Policy Coordinator Name Role Phone Norma Reyes MD Primary Care Provider [phone] Allergies Active Allergy Reactions Criticality Noted Date [...] Zoster (Shingles) Vaccine (1 of 2) 11/20/1999 RSV Vaccine 60 years and old er and Patients (1 - 1-dose 75+ series) 2024 Influenza Vaccine 04/20/2025 COVID-19 Vaccine ( - 2023-2 5 season) 2025 Hepatitis B Vaccines Aged Out No long er eligible based on patient's age to complete this topic Insurance MEDICARE PART A & B [facility] Care Teams Public Policy Coordinator Relationship Specialty Start Date End Date Norma Reyes MD [address] [place] [address] [place] [address] PCP - General Internal Medicine 08/03/23
== END 2025-06-14 14:12 | disposition home or self-care (01) ==
LOC: HO.RHES 12:47
PROVIDERS: PCP Internal Medicine; Visit Provider Student in an Organized Health Care Education/Training Program
DX: M1A.9XX1 Chronic gout, unspecified, with tophus (tophi) (principal); M17.0 Bilateral primary osteoarthritis of knee; Z51.81 Encounter for therapeutic drug level monitoring; Z79.899 Other long term (current) drug therapy
CPT/HCPCS: 99214; G2211

== ENCOUNTER → 2025-06-14 12:46 | Outpatient (BNVA) | payer MEDICARE, SELFPAY | PROVIDERS: PCP Internal Medicine; Visit Provider Student in an Organized Health Care Education/Training Program | DX: M1A.9XX1 Chronic gout, unspecified, with tophus (tophi) (principal); M17.0 Bilateral primary osteoarthritis of knee; Z51.81 Encounter for therapeutic drug level monitoring; Z79.899 Other long term (current) drug therapy | CPT/HCPCS: 99212 ==